=== PATIENT | male | born 1955 | race Caucasian/White ===

== ENCOUNTER 2020-07-03 12:59 | Inpatient (IN) | payer MEDICARE, SELFPAY ==
[2020-07-03] VITALS (44 sets, daily range): BP systolic 109–240; BP diastolic 51–131; PULSE 40–53; RESP 8–22; TEMP 36.7–37.2; O2SAT 92–97; BMI 23.7; BMI 21.4
--- NOTE | 2020-07-03 13:03 | XR_ITS ---
WS: [id number] Portable AP upright chest, 07/03/2020 Clinical Data: CVA symptoms Comparison: None. Findings: No nodules, masses or effusions are seen. The heart is slightly enlarged. No pneumothorax i s seen. Minimal bilateral patchy opacities are seen. This could represent pulmonary vascular congesti on or mild diffuse pneumonia XR/XR chest 1V portable [id number] Impression: Cardiomegaly with possible mild pulmonary vascular congestion.
--- NOTE | 2020-07-03 13:03 | CT_ITS ---
WS: [id number] CT HEAD TECHNIQUE: Noncontrast CT of the head obtained from the skullbase to the vertex. CLINICAL INFORMATION: Unilateral weakness COMPARISON: None. DLP: [address] scans at [facility] use at least one of these dose optimization techniques: automat ed exposure control; mA and/or kV adjustment per patient size (includes targeted exams where dose is matched to clinical indication); or iterative reconstruction. FINDINGS: No evidence of intracranial hemorrhage or mass effect. Ventricular system and basal cisterns are staples nt. Mild small vessel changes with mild parenchymal volume loss. No extra-axial fluid collections. No evidence of mass or mass effect. Normal nathan-white differentiation. Paranasal sinuses and mastoid air cells are well aerated. .Normal visualized soft tissues. Vascular c alcification. CT/CT head wo con* [id number] IMPRESSION: 1. No evidence of intracranial hemorrhage or mass effect. 2. Mild small vessel changes with mild parenchymal volume loss. 3. No acute intracranial findings. Notified Janina Chong at 07/03/2020 1:10 PM.
--- NOTE | 2020-07-03 13:03 | ECG_ITS ---
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 Measurements Intervals [place] Rate: 51 P: 51 VT: 174 QRS: 18 QRSD: 124 T: -68 QT: 488 QTc: 450 Interpretive Statements SINUS BRADYCARDIA POSSIBLE LEFT ATRIAL ENLARGEMENT [-0.1mV P WAVE IN V1/V2] MODERATE INTRAVENTRICULAR CONDUCTION DELAY [105+ ms QRS DURATION, 80+ ms Q/S IN V1/V2, NO Q AND 60+ ms R IN I/aVL/V5/V6] ST DEVIATION AND MODERATE T-WAVE ABNORMALITY, CONSIDER LATERAL ISCHEMIA [-0.1+ mV T WAVE IN I/aVL/V5/V6] ST DEVIATION AND MODERATE T-WAVE ABNORMALITY, CONSIDER INFERIOR ISCHEMIA [-0.1+ mV T WAVE IN II/aVF] No previous ECG available for comparison Electronically Signed On 07-03-2020 18:22:16 CDT by Uri James M.D. [id number]
--- NOTE | 2020-07-03 13:18 | ED_ITS ---
HPI - Neuro Symptoms/Deficit General: Chief Complaint: Neuro Symptoms/Deficit Stated Complaint: poss TIA Time Seen by Provider: 07/03/20 13:00 Source: patient and EMS Mode of arrival: EMS Limitations: no limitations History of Present Illness: HPI Narrative: Reyes is a nice 64-year-old male who comes in complaining of right-sided weakness. He was at work when he noticed the symptoms at 1235 of right-sided facial numbness, difficulty with speech, arm weakness and numbness and near syncope. Patient denies having any symptoms similar to this in the past. EMS was called and the patient was brought here to the hospital. The patient states his symptoms are not completely gone but the only symptoms that he has left is tingling in his right hand fingers. All of the other symptoms have resolved. He thinks they lasted for a total of 5 minutes or less. The patient is noted to be markedly hypertensive with a blood pressure of 240/131. He has a history of hypertension and took his medicines today states he saw his doctor yesterday with a blood pressure of 140 systolic. Patient denies any chest pain, shortness of breath, headache, or any other complaints. Associated symptoms: Deny chest pain, diaphoresis, headache(s), malaise, nausea, syncope, vertigo or vomiting Review of Systems Const: Denies: fever(s), chills, body aches, fatigue, malaise or diaphoresis Eyes: Denies: change in vision, blurry vision, photophobia, eye discomfort, eye discharge, eye redness or yellow eyes ENMT: Denies: throat pain, odynophagia, hoarseness, swelling of lips/tongue, ear or mastoid pain, ear discharge, change in hearing or nasal discharge Card: Denies: chest pain, palpitations, irregular heart rhythm, edema, lightheadedness, syncope, pre-syncope, dyspnea on exertion or orthopnea Resp: Denies: dyspnea, productive cough, non-productive cough, wheezing, hemoptysis or chest congestion GI: Denies: abdominal pain, nausea, vomiting, hematemesis, coffee ground emesis, heartburn, diarrhea, constipation, GI cramping, hematochezia or melena : Denies: flank pain, dysuria, urinary frequency, urinary urgency or hematuria Musc: Denies: neck pain, back pain, extremity pain, extremity swelling, joint pain, joint swelling, joint redness, joint warmth or joint stiffness Skin/Breast: Denies: rash, pruritus, erythema, skin pain or skin tenderness Neuro: Denies: headache(s), numbness in extremities, weakness in extremities, sensory changes, lack of coordination, difficulty walking, dizziness, vertigo, confusion, Slurred speech present or seizure-like activity Boo/Lymph: Denies: easy bruising, easy bleeding, petechiae, purpura or enlarged lymph nodes All/Imm: Denies: urticaria, throat swelling, tongue swelling, facial swelling or acute wheezing PFSH ED PFSH: Medical History (Updated 07/03/20 @ 17:20 by Memo Ybarra MD) Coronary artery disease Hypertension Sinus bradycardia Tobacco abuse Tonsillectomy planned Undescended testis Surgical History (Updated 07/03/20 @ 17:09 by Memo Ybarra MD) History of orchiectomy Family History (Updated 07/03/20 @ 17:09 by Memo Ybarra MD) Mother CAD (coronary artery disease) Father Cancer Social History (Updated 07/03/20 @ 17:10 by Memo Ybarra MD) Smoking and tobacco status: current every day smoker Second hand smoke exposure: Yes Alcohol intake: current Desire information about alcohol rehabilitation?: No Counseling given: No Substance/Drug Use: never NIH stroke score NIHSS: Level Of Consciousness - 1a: 0 Level Of Consciousness Questions - 1b: Both Correct Level Of Consciousness Commands - 1c: Both Correct Best Gaze - 2: Normal Visual Arana - 3: No Visual Loss Facial Palsy - 4: Normal Motor Arm Right - 5: No Drift Motor Arm Left - 5: No Drift Motor Leg Right - 6: No Drift Motor Leg Left - 6: No Drift Limb Ataxia - 7: Absent Sensory - 8: Mild To Moderate Loss Best Language - 9: No Aphasia Dysarthia - 10: Normal Extinction And Inattention - 11: 0 Score: Total Score: 1 Physical Exam Const: COMMON NORMALS: no acute distress, patient oriented x3, no limitations and alert GENERAL APPEARANCE: cooperative HENMT: COMMON NORMALS: normocephalic, atraumatic, external ears normal, EAC's normal and Normal external nose present HEAD & SCALP: normal to inspection, normocephalic and atraumatic FACE & SINUS: normal facial exam and face symmetric NOSE: Normal external nose present and Normal nares present EXTERNAL EAR: Yes external ears normal EXTERNAL AUDITORY CANAL: EAC's normal MOUTH: Normal oral and palatal mucosa present, lip normal and tongue normal Eye: COMMON NORMALS: Equal, round and reactive pupils present and conjunctivae normal GENERAL EYE: appearance normal, both eyes and all related structures ALIGNMENT: Yes alignment normal PERIORBITAL: periorbital findings normal EYELID: eyelids normal CONJUNCTIVA: Yes conjunctivae normal SCLERA: sclerae normal PUPIL: Yes Equal, round and reactive pupils present Neck/C-Spine: COMMON NORMALS: full ROM, no lymphadenopathy, supple, no meningeal signs and no JVD GENERAL: Yes normal visual inspection and Yes trachea midline Chest: COMMONS NORMALS: normal inspection of the chest and normal palpation of entire chest wall Resp: COMMON NORMALS: normal respiratory effort, No retractions, No use of accessory muscles and clear to auscultation bilaterally EFFORT & INSPECTION: Yes able to speak in complete sentences and Yes symmetric chest movement AUSCULTATION: clear to auscultation bilaterally, no crackles, no rales, no rhonchi and no wheezes Cardio: COMMON NORMALS: no JVD, regular rate, regular rhythm, S1 normal heart sound present and S2 normal heart sound present RATE: regular rate RHYTHM: regular rhythm HEART SOUNDS: S1 normal heart sound present, S2 normal heart sound present, no click, no gallops, no murmurs and no rubs GI: COMMON NORMALS: Soft to palpation and No hepatosplenomegaly present PALPATION: Yes Soft to palpation, No Tenderness to palpation present (GI), No Guarding due to palpation present (GI), No Rigid due to palpation, Yes No hepatosplenomegaly present, No Hernia present, No Palpable mass present and No Pulsatile mass present : COMMON NORMALS: Yes no CVA tenderness BLADDER/KIDNEY EXAM: Yes no CVA tenderness Back/Pelvis: COMMON NORMALS: no CVA tenderness, thoracic and lumbar spine normal to inspection, no thoracic nor lumbar tenderness and thoraco-lumbar ROM normal Extremity: COMMON NORMALS: normal to inspection, full ROM, capillary refill normal, no joint enlargement, no clubbing, cyanosis or edema and no calf tenderness Neuro: COMMON NORMALS: patient oriented x3, CN's II-XII intact bilaterally, moves all extremities, no focal motor deficits and no sensory deficits noted SENSORIUM/ORIENTATION: Yes alert MENINGEAL SIGNS: Yes no meningeal signs SPEECH: speech normal Psych: COMMON NORMALS: mental status grossly normal, Normal thought process present, cooperative, normal affect, speech normal and activity/motor behavior normal SPEECH: Yes normal speech THOUGHT PROCESS: Normal thought process present Skin: COMMON NORMALS: no rashes or lesions noted, turgor normal, no jaundice, no petechiae and no mottling GENERAL SKIN EXAM: no rashes or lesions noted and turgor normal Course ED course: 1337 -Case reviewed with Dr. Merlos at [facility] professional application designer for stroke. He agrees the patient is not a TPA candidate at this time and recommends using Cardene to keep the patient's blood pressure less than 220/110. Patient's blood pressure is not improved on its own here and his heart rate is not amenable to labetalol. Vital Signs: Vital signs: Vital Signs Temperature 98.2 F 07/04/20 00:00 Pulse Rate 42 L 07/04/20 04:00 Respiratory Rate 26 H 07/04/20 04:00 Blood Pressure 147/73 07/04/20 04:00 Pulse Oximetry 93 07/04/20 04:00 MDM - Neuro Symptoms/Deficit MDM Narrative: Medical decision making narrative: 1615 -patient's blood pressure has improved but not too low with the Cardene. His systolic is ranging anywhere from 180s to 200s. His diastolic is just below 110. CTA of the head and neck is unremarkable. Unremarkable and the since there is no intervene able clots. I have reviewed the case in full with Dr. Ybarra he is agreeable to admission for further evaluation and care. Lab Data: Attestation: I reviewed the patient's lab results. Labs: Lab Results 07/03/20 07/03/20 07/03/20 Range/Units 14:30 14:35 14:35 WBC 8.7 (4.0-10.0) 10^3/ uL RBC 4.88 (4.1-5.3) 10^6/u L Hgb 15.1 (11.7-16.6) g/dL Hct 45.7 (42.0-52.0) % MCV 93.6 (80-94) fL MCH 30.9 (28.0-34.0) pg MCHC 33.0 (30.0-36.0) g/dL RDW 13.6 (12.1-15.1) % Plt Count 85 L (130-400) 10^3/c mm MPV 13.3 H (7.4-10.4) fL Neut % (Auto) 79.9 % Lymph % (Auto) 13.6 % [place]mort[place] % (Auto) 3.7 % Eos % (Auto) 2.0 % Baso % (Auto) 0.3 % Neut # (Auto) 6.95 (1.8-7.7) 10^3/u L Lymph # (Auto) 1.2 (0.8-4.8) 10^3/u L [place] # (Auto) 0.3 (0.2-0.9) 10^3/u L Eos # (Auto) 0.2 (0.0-0.8) 10^3/u L Baso # (Auto) 0.0 (0.0-0.1) 10^3/u L Nucleated RBC % (a uto) 0 % Nucleated RBCs # 0.0 /100WBC PT 14.40 (12.1-14.9) SECO NDS INR 1.08 (0.8-1.2) APTT 29.5 (23.9-36.7) SECO NDS Sodium (136-145) mmol/L Potassium (3.5-5.1) mmol/L Chloride (98-107) mmol/L Carbon Dioxide (22-29) mmol/L Anion Gap (5-19) BUN (8-23) mg/dL Creatinine (0.7-1.2) mg/dL GFR Calculation (90-130) mL/min Glucose (65-115) mg/dL Calculated Osmolal ity (285-295) mOsm/k g Calcium (8.5-10.5) mg/dL Magnesium (1.7-2.3) mg/dL Total Bilirubin (0.15-1.2) mg/dL AST (0-40) U/L ALT (0-41) U/L Alkaline Phosphata se (40-130) IU/L Troponin T Baselin e (0-15) ng/L Total Protein (6.6-8.7) g/dL Albumin (3.5-5.2) g/dL Globulin (1.3-4.6) g/dL Urine Color Straw (Yellow) Urine Appearance Clear (CLEAR) Urine pH 7 (5-7) Ur Specific Gravit y 1.010 (1.005-1.030) Urine Protein Neg (Negative) Urine Glucose (UA) Norm (Normal) Urine Ketones Negative (Negative) Urine Blood Neg (Negative) Urine Nitrate Negative (Negative) Urine Bilirubin Neg (Negative) Urine Urobilinogen Norm (Negative) mg/dL Ur Leukocyte Kesha ase Negative (Negative) Urine RBC None (0-2) /hpf Urine WBC None (0-5) /hpf Ur Squamous Epith Cells None (0-5) /hpf Amorphous Sediment Not Reportable Urine Bacteria None (NONE) /hpf 07/03/20 07/03/20 Range/Units 14:35 14:35 WBC (4.0-10.0) 10^3/ uL RBC (4.1-5.3) 10^6/u L Hgb (11.7-16.6) g/dL Hct (42.0-52.0) % MCV (80-94) fL MCH (28.0-34.0) pg MCHC (30.0-36.0) g/dL RDW (12.1-15.1) % Plt Count (130-400) 10^3/c mm MPV (7.4-10.4) fL Neut % (Auto) % Lymph % (Auto) % [place] % (Auto) % Eos % (Auto) % Baso % (Auto) % Neut # (Auto) (1.8-7.7) 10^3/u L Lymph # (Auto) (0.8-4.8) 10^3/u L [place] # (Auto) (0.2-0.9) 10^3/u L Eos # (Auto) (0.0-0.8) 10^3/u L Baso # (Auto) (0.0-0.1) 10^3/u L Nucleated RBC % (a uto) % Nucleated RBCs # /100WBC PT (12.1-14.9) SECO NDS INR (0.8-1.2) APTT (23.9-36.7) SECO NDS Sodium 141 (136-145) mmol/L Potassium 3.9 (3.5-5.1) mmol/L Chloride 105 (98-107) mmol/L Carbon Dioxide 26 (22-29) mmol/L Anion Gap 13.9 (5-19) BUN 13 (8-23) mg/dL Creatinine 1.2 (0.7-1.2) mg/dL GFR Calculation 60.6 L (90-130) mL/min Glucose 109 (65-115) mg/dL Calculated Osmolal ity 293 (285-295) mOsm/k g Calcium 8.7 (8.5-10.5) mg/dL Magnesium 1.6 L (1.7-2.3) mg/dL Total Bilirubin 0.5 (0.15-1.2) mg/dL AST 19 (0-40) U/L ALT 16 (0-41) U/L Alkaline Phosphata se 67 (40-130) IU/L Troponin T Baselin e 15 (0-15) ng/L Total Protein 6.4 L (6.6-8.7) g/dL Albumin 4.1 (3.5-5.2) g/dL Globulin 2.3 (1.3-4.6) g/dL Urine Color (Yellow) Urine Appearance (CLEAR) Urine pH (5-7) Ur Specific Gravit y (1.005-1.030) Urine Protein (Negative) Urine Glucose (UA) (Normal) Urine Ketones (Negative) Urine Blood (Negative) Urine Nitrate (Negative) Urine Bilirubin (Negative) Urine Urobilinogen (Negative) mg/dL Ur Leukocyte Kesha ase (Negative) Urine RBC (0-2) /hpf Urine WBC (0-5) /hpf Ur Squamous Epith Cells (0-5) /hpf Amorphous Sediment Urine Bacteria (NONE) /hpf Imaging Data^: CT Head: Radiologist's impression: [address] [address] [address] Scan Report Signed Patient: Reyes Ji Unit #: [id number] : 1955 Age/Sex: 64 / M ADM Date: 07/03/20 Loc: ER Room/Bed: Attending Dr: Ordering Provider/Ordering MD: Janina Chong DO Date of Service: 07/03/20 Procedure(s): CT head wo con* [id number] Accession Number(s): [id number] Report Number: [id number] WS: [id number] CT HEAD TECHNIQUE: Noncontrast CT of the head obtained from the skullbase to the vertex. CLINICAL INFORMATION: Unilateral weakness COMPARISON: None. DLP: [address] scans at [facility] use at least one of these dose optimization techniques: automated exposure control; mA and/or kV adjustment per patient size (includes targeted exams where dose is matched to clinical indication); or iterative reconstruction. FINDINGS: No evidence of intracranial hemorrhage or mass effect. Ventricular system and basal cisterns are patent. Mild small vessel changes with mild parenchymal volume loss. No extra- axial fluid collections. No evidence of mass or mass effect. Normal nathan-white differentiation. Paranasal sinuses and mastoid air cells are well aerated. .Normal visualized soft tissues. Vascular calcification. CT/CT head wo con* [id number] IMPRESSION: 1. No evidence of intracranial hemorrhage or mass effect. 2. Mild small vessel changes with mild parenchymal volume loss. 3. No acute intracranial findings. Notified Janina Chong at 07/03/2020 1:10 PM. Dictated By: Alonzo Guillermo MD Signed By: Alonzo uGillermo MD Signed Date/Time: 07/03/20 1312 DD/ 1306 CTA Head Neck: Radiologist's impression: [address] [address] [address] Scan Report Signed Patient: Reyes Ji Unit #: [id number] : 1955 Age/Sex: 64 / M ADM Date: 07/03/20 Loc: ER Room/Bed: Attending Dr: Ordering Provider/Ordering MD: Janina Chong DO Date of Service: 07/03/20 Procedure(s): CT head wo con* [id number] Accession Number(s): [id number] Report Number: [id number] WS: [id number] CT HEAD TECHNIQUE: Noncontrast CT of the head obtained from the skullbase to the vertex. CLINICAL INFORMATION: Unilateral weakness COMPARISON: None. DLP: [address] scans at [facility] use at least one of these dose optimization techniques: automated exposure control; mA and/or kV adjustment per patient size (includes targeted exams where dose is matched to clinical indication); or iterative reconstruction. FINDINGS: No evidence of intracranial hemorrhage or mass effect. Ventricular system and basal cisterns are patent. Mild small vessel changes with mild parenchymal volume loss. No extra- axial fluid collections. No evidence of mass or mass effect. Normal nathan-white differentiation. Paranasal sinuses and mastoid air cells are well aerated. .Normal visualized soft tissues. Vascular calcification. CT/CT head wo con* [id number] IMPRESSION: 1. No evidence of intracranial hemorrhage or mass effect. 2. Mild small vessel changes with mild parenchymal volume loss. 3. No acute intracranial findings. Notified Janina Chong at 07/03/2020 1:10 PM. Dictated By: Alonzo Guillermo MD Signed By: Alonzo Guillermo MD Signed Date/Time: 07/03/20 1312 DD/ 1306 CXR: Attestation: I personally reviewed and interpreted this imaging study as follows: My impression: No acute cardiopulmonary findings. EKG Data^: EKG 1: Attestation: I personally reviewed and interpreted this EKG as follows: EKG interpretation date: 07/03/20 EKG interpretation time: 13:07 Interpretation: Sinus bradycardia at 50 beats a minute, T wave inversions were 2, remember 3 and aVF. 2 inversions also present in V5 V6. Nonspecific ST and T wave changes. No old for comparison. EKG 2: Attestation: I personally reviewed and interpreted this EKG as follows: EKG interpretation date: 07/03/20 EKG interpretation time: 14:57 Interpretation: Sinus bradycardia 57 beats a minute, T wave inversions inferiorly in V4 through V6. Unchanged from previous. Discharge Plan Discharge Patient Disposition: Admitted As Inpatient Admit Provider: Memo Ybarra Clinical Impression: Hypertensive emergency Transient cerebral ischemia Qualifiers: Transient cerebral ischemia type: unspecified Qualified Code(s): G45.9 - Transient cerebral ischemic attack, unspecified Condition: Stable Referrals: Morgan Landa Jr, MD [Primary Care Provider] - Discharge Date/Time: 07/03/20 19:38 Coding Level of Care Code ED Cut Press Operator for Chg Fwd Exam Comprehensive
[2020-07-03] MEDS: nicardipine 20 MG/200 ML PREMIX 25 MG IV ×2 (13:49→20:10)
--- NOTE | 2020-07-03 14:01 | CT_ITS ---
WS: [id number] CTA HEAD AND NECK TECHNIQUE: Contrast enhanced CTA of the head and neck with coronal and sagittal reformatted images an d maximum intensity projection (MIP) images. NASCET criteria utilized. CLINICAL INFORMATION: cva COMPARISON: None. DLP: 2358.[address] scans at [facility] use at least one of these dose optimization techniques: automat ed exposure control; mA and/or kV adjustment per patient size (includes targeted exams where dose is matched to clinical indication); or iterative reconstruction. FINDINGS: RIGHT: Right common carotid artery is patent. Moderate calcified atheromatous disease right carotid b ulb extending into the ICA. Right ICA stenosis measures less than 50%. Right ICA is patent to the sku ll base. LEFT: Left common carotid artery is patent. Moderate calcified atheromatous disease left carotid bulb extending into the ICA. No significant left ICA stenosis. Left ICA is patent to the skull base. INTRACRANIAL CTA: Both vertebral arteries are patent. Basilar artery is patent. Normal vascularity to the MANAGER SERVICE DESK territory bilaterally. Both ICAs are patent at the skull base. Cavernous chronic calcification. Hypoplastic A1 segments. Nor mal vascularity to the JOBY and MCA territories bilaterally. No evidence of high-grade proximal stenos is or aneurysm. Distal vessels appear patent. Mastoid air cells are well aerated. Paranasal sinuses are well aerated with mild mucosal thickening i n the maxillary sinuses and ethmoid air cells. Mild mucosal thickening in the sphenoid sinuses.Emphys ematous changes in the lung apices. CT/CT angio headneck* [id number] IMPRESSION: 1. Moderate calcified atheromatous disease both carotid bulbs extending into t he ICAs. 2. Right proximal ICA stenosis measures less than 50%. No significant left ICA stenosis. 3. Codominant and patent vertebral arteries bilaterally. 4. Intracranial vascular calcification involving the cavernous carotid arterie s and intracranial vertebral arteries which remain patent. 5. Unremarkable intracranial seminole of [place]. Distal vessels are patent. 6. No flow-limiting intracranial stenosis. Attempted notification Janina Chong at 07/03/2020 3:55 PM. .
[2020-07-03 14:44] LABS: Basophils % 0.3 %; Eosinophils # 0.2 10^3/uL (0.0-0.8); Hematocrit 45.7 % (42.0-52.0); Hemoglobin 15.1 g/dL (11.7-16.6); Lymphocytes # 1.2 10^3/uL (0.8-4.8); Lymphocytes % 13.6 %; Mean Corpuscular Hemoglobin 30.9 pg (28.0-34.0); Mean Corpuscular Volume 93.6 fL (80-94); Mean Platelet Volume 13.3 fL (7.4-10.4); Monocytes # 0.3 10^3/uL (0.2-0.9); Monocytes % 3.7 %; Neutrophils # 6.95 10^3/uL (1.8-7.7); Neutrophils % 79.9 %; Nucleated Red Blood Cells % 0 %; Platelet Count 85 10^3/cmm (130-400); Red Blood Count 4.88 10^6/uL (4.1-5.3); Red Cell Distribution Width 13.6 % (12.1-15.1); White Blood Count 8.7 10^3/uL (4.0-10.0)
--- NOTE | 2020-07-03 15:03 | ECG_ITS ---
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 Measurements Intervals [place] Rate: 47 P: 62 UT: 177 QRS: 51 QRSD: 125 T: 236 QT: 501 QTc: 446 Interpretive Statements SINUS BRADYCARDIA POSSIBLE LEFT ATRIAL ENLARGEMENT [-0.1mV P WAVE IN V1/V2] MODERATE INTRAVENTRICULAR CONDUCTION DELAY [105+ ms QRS DURATION, 80+ ms Q/S IN V1/V2, NO Q AND 60+ ms R IN I/aVL/V5/V6] ST DEVIATION AND MODERATE T-WAVE ABNORMALITY, CONSIDER LATERAL ISCHEMIA [-0.1+ mV T WAVE IN I/aVL/V5/V6] ST DEVIATION AND MODERATE T-WAVE ABNORMALITY, CONSIDER INFERIOR ISCHEMIA [-0.1+ mV T WAVE IN II/aVF] Compared to ECG 07/03/2020 13:07:14 No significant changes Electronically Signed On 07-03-2020 18:27:48 CDT by Uri James M.D. [id number]
[2020-07-03 15:11] LABS: Alanine Aminotransferase 16 U/L (0-41); Albumin Level 4.1 g/dL (3.5-5.2); Alkaline Phosphatase 67 IU/L (40-130); Anion Gap 13.9 (5-19); Aspartate Amino Transferase 19 U/L (0-40); Blood Urea Nitrogen 13 mg/dL (8-23); Calcium 8.7 mg/dL (8.5-10.5); Carbon Dioxide 26 mmol/L (22-29); Chloride 105 mmol/L (98-107); Globulin 2.3 g/dL (1.3-4.6); Glomerular Filtration Rate 60.6 mL/min (90-130); Glucose 109 mg/dL (65-115); Magnesium 1.6 mg/dL (1.7-2.3); Osmolality Calculated 293 mOsm/kg (285-295); Potassium 3.9 mmol/L (3.5-5.1); Sodium 141 mmol/L (136-145); Total Bilirubin 0.5 mg/dL (0.15-1.2); Total Protein 6.4 g/dL (6.6-8.7)
[2020-07-03 15:12] LABS: Troponin(5th) Baseline 15 ng/L (0-15)
[2020-07-03] MEDS: iohexol 350 mg/mL 100 mL Btl IV (15:20)
[2020-07-03 15:25] LABS: Slide Review Slide Review Perform
[2020-07-03 16:42] LABS: INR 1.08 (0.8-1.2)
[2020-07-03 16:43] LABS: Partial Thromboplastin Time 29.5 SECONDS (23.9-36.7)
--- NOTE | 2020-07-03 16:48 | P.HP_ITS ---
Providers/Chief Complaint Primary Care Provider: Morgan Landa Jr, MD Chief Complaint: poss TIA History of Present Illness Reyes Ji is a 64 year old male presents emergency department with acute episode of numbness and weakness of the right upper extremity and then right facial numbness and slurred speech while patient was at work around 1235. He was further evaluated in emergency department. He was found to have blood pressure 240/131. He was started on Cardene drip to keep blood pressure below 220/110. His CT scan without contrast was unremarkable. CTA showed less than 50% of right proximal ICA stenosis. No significant left ICA stenosis. He did not qualify for TPA. He is being admitted to ICU for close monitoring and treatment. Patient denies previous history of stroke. Patient denies being diabetic. He has chronic hypertension which is treated and well controlled on 2 blood pressure medications, metoprolol and what appears to be a lisinopril which he takes twice daily. Reports that his heart rate always in mid 40s to 50. He has coronary disease requiring intervention approximately 8 years ago. He received 2 stents at that time. Reports that he was on Plavix for several years after intervention and then it was discontinued. Reports that he has been on full dose aspirin since then. Reports compliance with medications and takes statin. Patient otherwise denied shortness of breath or chest pain. Denies abdominal pain or problems with bowel movement. Denies problem with urination. Had very minimal weight loss in the last 1 year which patient reports likely because he was quite active during summertime. He continues to smoke since age 16 and reports he is down to half pack per day. During my evaluation in emergency department patient reports that his neurological symptoms are completely gone except he has distal right index finger numbness. His strength and speech completely recovered. He showed no cerebellar signs and had normal peripheral vision. He denied heart palpitations or irregular rhythm or previous history of atrial fibrillation/flutter. Review of Systems Narrative: Except as mentioned. Const: Denies: fever(s) or chills Eyes: Denies: change in vision ENMT: Denies: throat pain or change in hearing Card: Denies: chest pain, edema or lightheadedness Resp: Denies: dyspnea or productive cough GI: Denies: abdominal pain, nausea, vomiting, dysphagia, diarrhea, constipation, hematochezia or melena Musc: Denies: joint pain or joint swelling Skin/Breast: Denies: rash or erythema Neuro: Denies: headache(s) or weakness in extremities Psych: Denies: depression or suicidal ideation Endo: Denies: excessive sweating Boo/Lymph: Denies: easy bleeding or tender lymph nodes All/Imm: Denies: throat swelling Medications/Allergies Allergies Allergy/AdvReac Type Severity Reaction Status Date / Time No Known Allergies Allergy Verified 07/03/20 13:06 PFSH Acute PFSH: Medical History (Updated 07/03/20 @ 17:20 by Memo Ybarra MD) Coronary artery disease Hypertension Sinus bradycardia Tobacco abuse Tonsillectomy planned Undescended testis Surgical History (Updated 07/03/20 @ 17:09 by Memo Ybarra MD) History of orchiectomy Family History (Updated 07/03/20 @ 17:09 by Memo Ybarra MD) Mother CAD (coronary artery disease) Father Cancer Social History (Updated 07/03/20 @ 17:10 by Memo Ybarra MD) Smoking and tobacco status: current every day smoker Second hand smoke exposure: Yes Alcohol intake: current Desire information about alcohol rehabilitation?: No Counseling given: No Substance/Drug Use: never Vitals/I&O/Wt Last Vital Signs Pulse 50 L 07/03/20 16:09 Resp 15 07/03/20 16:09 BP 195/94 07/03/20 16:09 Pulse Ox 95 07/03/20 16:09 Weight last 48 hrs Weight 77.111 kg Physical Exam 2 Const: COMMON NORMALS: no acute distress, patient oriented x3 and alert HENMT: COMMON NORMALS: normocephalic and atraumatic HEAD & SCALP: normocephalic and atraumatic Eye: COMMON NORMALS: EOMs intact bilaterally, conjunctivae normal and no scleral icterus CONJUNCTIVA: Yes conjunctivae normal Neck/C-Spine: COMMON NORMALS: no lymphadenopathy and no meningeal signs Lymph: LYMPHATIC: no lymphadenopathy noted Chest: COMMONS NORMALS: normal palpation of entire chest wall Resp: COMMON NORMALS: No use of accessory muscles and clear to auscultation bilaterally AUSCULTATION: clear to auscultation bilaterally Cardio: COMMON NORMALS: regular rate, regular rhythm and No murmurs present (Cardio) RATE: regular rate RHYTHM: regular rhythm OTHER: No lower extremity edema GI: COMMON NORMALS: Soft to palpation and non-tender PALPATION: Yes Soft to palpation RECTAL EXAM: Yes deferred : COMMON NORMALS: Yes no CVA tenderness BLADDER/KIDNEY EXAM: Yes no CVA tenderness Back/Pelvis: COMMON NORMALS: no CVA tenderness and thoracic and lumbar spine normal to inspection Extremity: COMMON NORMALS: normal to inspection and capillary refill normal Neuro: COMMON NORMALS: patient oriented x3 and no focal motor deficits SENSORIUM/ORIENTATION: Yes alert MENINGEAL SIGNS: Yes no meningeal signs Psych: COMMON NORMALS: mental status grossly normal, Normal thought process pr esent and cooperative THOUGHT PROCESS: Normal thought process present Skin: COMMON NORMALS: no rashes or lesions noted GENERAL SKIN EXAM: no rashes or lesions noted Data : 07/03/20 14:35 07/03/20 14:35 A&P Assessment and plan (1) Cerebrovascular accident: Status: Acute (2) Hypertensive emergency: Status: Acute (3) Tobacco abuse: Status: Acute (4) Peripheral vascular disease: Status: Acute (5) Thrombocytopenia: Status: Acute (6) Dyslipidemia: Status: Acute (7) Hypomagnesemia: Status: Acute (8) COPD suggested by initial evaluation: Status: Acute (9) Sinus bradycardia: Status: Acute Additional A&P Information PLAN: We will switch aspirin to 81 mg daily and add Plavix with close monitoring of hemoglobin and platelets. Continue statin. Obtain echocardiogram for further evaluation. Discussed extensively of more than 3 minutes regarding importance of smoking cessation. Patient voiced understanding. He does not think he will need pharmacological help. Patient appears to have COPD and will need to have further outpatient evaluation with PFT post discharge. Replete magnesium. Monitor closely in ICU and adjust Cardene drip as needed to keep blood pressure below 220/110 but above systolic 185. Reconcile medications and restart patient's blood pressure medications tomorrow. Because of significant thrombocytopenia will avoid anticoagulation with Lovenox especially in view of added Plavix to aspirin. SCDs for DVT prophylaxis Protonix for GI prophylaxis. PT/OT/ST. Would like to mention that patient was evaluated and examined with patient's at bedside in ER who did report that patient speech is back to normal. Attestations Medical Necessity Statement*: Patient with cerebrovascular accident and hyper tensive emergency requires close ICU monitoring and treatment. I expect patient will require more than 2 midnights. Time Spent in Patient Care: Greater than 35 minutes Coding Level of Care Code Acute Operational Trainer for Chg Fwd Diagnoses Cerebrovascular accident I63.9 Hypertensive emergency I16.1 Tobacco abuse Z72.0 Peripheral vascular disease I73.9 Thrombocytopenia D69.6 Dyslipidemia E78.5 Hypomagnesemia E83.42 COPD suggested by initial evaluation J44.9 Sinus bradycardia R00.1
[2020-07-03 16:58] LABS: Bilirubin Urine Neg (Negative); Blood Urine Neg (Negative); Glucose Urine UA Norm (Normal); Ketones Urine Negative (Negative); Leukocyte Esterase Urine Negative (Negative); Nitrate Urine Negative (Negative); Protein Urine Neg (Negative); Urine Appearance Clear (CLEAR); Urine Color Straw (Yellow); Urobilinogen Urine Norm (Negative); pH Urine 7 (5-7)
[2020-07-03] MEDS: clopidogrel 75 mg Tablet PO (17:20)
[2020-07-03] MEDS: magnesium sulfate premix 2 GM/50 ML PIGGYBACK IV (17:20)
[2020-07-03 17:27] LABS: Add Urine Culture? No
[2020-07-03] MEDS: atorvastatin 40 mg Tablet PO (18:46)
--- NOTE | 2020-07-03 18:54 | PC.NURSE ---
Attempted to call report to ICU at 1840, UC stated the nurse would not take report for 15-20 minutes as nurse was in report at shift change. FREDY Rhodes then stated room was not equipped as adjoining room was on COVID19 precautions
[2020-07-03] MEDS: lactated ringers 1,000 ML 75 ML IV (19:48)
[2020-07-03 20:14] LABS: Troponin T (5th) Once 13 ng/L (0-15)
[2020-07-04] VITALS (25 sets, daily range): BP systolic 124–206; BP diastolic 61–101; PULSE 38–53; RESP 0–26; TEMP 36.6–37; O2SAT 92–98
[2020-07-04 04:06] LABS: Basophils % 0.5 %; Eosinophils # 0.1 10^3/uL (0.0-0.8); Eosinophils % 2.2 %; Hematocrit 44.2 % (42.0-52.0); Hemoglobin 14.9 g/dL (11.7-16.6); Lymphocytes # 1.6 10^3/uL (0.8-4.8); Lymphocytes % 24.8 %; Mean Corpuscular HGB Conc 33.7 g/dL (30.0-36.0); Mean Corpuscular Hemoglobin 30.9 pg (28.0-34.0); Mean Corpuscular Volume 91.7 fL (80-94); Mean Platelet Volume 13.4 fL (7.4-10.4); Monocytes # 0.4 10^3/uL (0.2-0.9); Monocytes % 6.7 %; Neutrophils # 4.25 10^3/uL (1.8-7.7); Neutrophils % 65.6 %; Nucleated Red Blood Cells % 0 %; Platelet Count 83 10^3/cmm (130-400); Red Blood Count 4.82 10^6/uL (4.1-5.3); Red Cell Distribution Width 13.5 % (12.1-15.1); White Blood Count 6.5 10^3/uL (4.0-10.0)
[2020-07-04 04:30] LABS: Slide Review Slide Review Perform
[2020-07-04 04:39] LABS: Alanine Aminotransferase 13 U/L (0-41); Albumin Level 3.6 g/dL (3.5-5.2); Alkaline Phosphatase 60 IU/L (40-130); Anion Gap 12.4 (5-19); Aspartate Amino Transferase 15 U/L (0-40); Blood Urea Nitrogen 13 mg/dL (8-23); Calcium 9.1 mg/dL (8.5-10.5); Carbon Dioxide 26 mmol/L (22-29); Chloride 105 mmol/L (98-107); Globulin 2.5 g/dL (1.3-4.6); Glucose 89 mg/dL (65-115); Magnesium 2.1 mg/dL (1.7-2.3); Osmolality Calculated 290 mOsm/kg (285-295); Potassium 3.4 mmol/L (3.5-5.1); Sodium 140 mmol/L (136-145); Total Bilirubin 0.7 mg/dL (0.15-1.2); Total Protein 6.1 g/dL (6.6-8.7)
[2020-07-04] MEDS: pantoprazole DR 40 mg Tablet PO (07:59)
[2020-07-04] MEDS: clopidogrel 75 mg Tablet PO (07:59)
[2020-07-04] MEDS: potassium chloride ER 10 mEq Tablet 40 MEQ PO (08:00)
[2020-07-04] MEDS: aspirin 81 mg EC Tablet PO (08:00)
[2020-07-04] MEDS: lactated ringers 1,000 ML 75 ML IV (08:01)
--- NOTE | 2020-07-04 09:07 | PC.CHAP ---
Pastoral Care Encounter/Spiritual Assessment Type of Contact [] Declined disintegrator feeder visit [] Patient/Family/Request visit [] Outpatient visit [] Follow-up visit [] Physician referral [] Code/Alert [] Routine visit [] Staff referral [] Actively dying [] Patient sleeping [] Family support [] [] Out of room [] Palliative care [] [] Receiving care in room [] Pre-surgical visit [] Trauma [] Long length of stay [] ICU visit [] Other: Relational/Emotional Strength [] Patient feels connected with others/family/visitors/staff [] Distress [] Loneliness/isolation [] Abandonment Spirituality of Patient [] Person of Jessie [] Attends Religious of their Jessie [] Believes in Prayer [] Reads Bible or Congregational materials [] There are Spiritual issues to be addressed Executive Sales Manager Interventions [x] Prayer [] Active listening [] Non-anxious presence [] Spiritual/emotional support [] Crisis/trauma care [] Spiritual counseling [] Bereavement support [] Provided bereavement packet [] Provided Bible/devotional materials [] Provided toy/stuffed animal, coloring book to patient or family member [] Provided Communion [] Anointing/[place] [] Salvation [x] Completed spiritual assessment [] Other: Impact on Illness or Injury [] Angry [] Fearful [] Anxious [] Often cries [] Exhaustion [] Unable to work [] Unable to attend alevism [] Unable to walk/stand [] Unable to read [] Unable to drive [] Unable to eat/drink [] Unable to sleep [] Unable to be with family [] Patient intubated [] Other: Summary Time spent with patient
--- NOTE | 2020-07-04 09:51 | PM.PN ---
Subjective Subjective: Interval history: Patient reports feeling much better. Reports that his neurological complaints completely resolved. He does not have any numbness or tingling. He does not have any motor deficit. His blood pressure continues to be elevated around 200 systolic during my evaluation this morning. He was able to eat breakfast and denies any problems with urination. Vitals/I&O/Wt Last Vital Signs Temp 98.2 F 07/04/20 00:00 Pulse 42 L 07/04/20 06:00 Resp 12 07/04/20 06:00 BP 166/78 07/04/20 06:00 Pulse Ox 95 07/04/20 06:00 07/03/20 07/04/20 07/04/20 22:59 06:59 14:59 Intake Total 612.917 / 612.917 252.5 / 865.417 916.25 / 916.25 Output Total 300 / 300 350 / 650 Balance 312.917 / 312.917 -97.5 / 215.417 916.25 / 916.25 Weight last 48 hrs Weight 69.037 kg Weight 69.581 kg Weight 77.111 kg Physical Exam Const: COMMON NORMALS: no acute distress and patient oriented x3 Resp: COMMON NORMALS: normal respiratory effort and clear to auscultation bilaterally AUSCULTATION: clear to auscultation bilaterally Cardio: COMMON NORMALS: regular rate, regular rhythm and S2 normal heart sound present RATE: regular rate RHYTHM: regular rhythm HEART SOUNDS: S2 normal heart sound present OTHER: No lower extremity edema GI: COMMON NORMALS: Normal to inspection, nondistended, normoactive bowel sounds present, Soft to palpation and non-tender PALPATION: Yes Soft to palpation Neuro: COMMON NORMALS: patient oriented x3 and no focal motor deficits Data : 07/04/20 03:25 07/04/20 03:25 A&P Assessment and plan (1) Cerebrovascular accident: Status: Acute (2) Hypertensive emergency: Status: Acute (3) Tobacco abuse: Status: Acute (4) Peripheral vascular disease: Status: Acute (5) Thrombocytopenia: Status: Acute (6) Dyslipidemia: Status: Acute (7) Hypomagnesemia: Status: Acute (8) COPD suggested by initial evaluation: Status: Acute (9) Sinus bradycardia: Status: Acute Additional A&P Information PLAN: We will discontinue IV fluids Restart patient's home lisinopril and decrease metoprolol to 25 mg twice daily and continue monitoring for neurological complaints. Continue monitoring vitals. If remains stable later this afternoon we will transfer to [facility]. Consider adding 5 minutes amlodipine should blood pressure still be elevated. Awaiting echocardiogram. Attestations Medical Necessity Statement*: Patient with hypertensive emergency as well as cerebrovascular accident requires close inpatient monitoring and treatment. Coding Level of Care Code Acute Fishery Biologist for Paresh Nagel Diagnoses Cerebrovascular accident I63.9 Hypertensive emergency I16.1 Tobacco abuse Z72.0 Peripheral vascular disease I73.9 Thrombocytopenia D69.6 Dyslipidemia E78.5 Hypomagnesemia E83.42 COPD suggested by initial evaluation J44.9 Sinus bradycardia R00.1
--- NOTE | 2020-07-04 10:13 | PC.NURSE ---
LOPRRESSOR HELD UNTIL I COULD SPEAK TO DR ABOUT HIS HEART RATE. HE SAID TO GO ON AND GIVE IT AT THE LOWER DOSE. PATIENTS FACE DOES NOT SEEM COMPLETELY SYMETRICAL BUT I WAS ASSURED THAT IS HIS NORMAL. LIMBS EQUAL. PATIENT VERY [place] AND NEEDS HIS GLASSES TO PERFORM FINGER NOSE ASSESSMENT.
[2020-07-04] MEDS: lisinopril 20 mg Tablet 40 MG PO (10:18)
--- NOTE | 2020-07-04 11:08 | PC.NURSE ---
VOIDS FREQUENTLY 50 TO 100 AT A TIME. MAY NEED FLOMAX OR A UROLOGY CONSULT. DENIES ISSUES. CARDENE DRIP ON FOR AN HOUR OR SO UNTIL NEW MEDS START TO METABOLIZE.
[2020-07-04] MEDS: amlodipine 5 mg Tablet PO (13:19)
--- NOTE | 2020-07-04 14:59 | PC.NURSE ---
DR KENNEDY NOTIFIED 2X OF BP RESPONSE TO NEW MEDICATIONS. ONCE AROUND NOON AND THE OTHER 1430. TRANSFER ORDERS ADJUSTED TO REFLECT DAILY NORVASC AND PRN HYDRALIZINE ALSO THAT THE DR WOULD LIKE Q2 HR BP MEASUREMENT . AN HOUR AFTER THE NORVASC HIS PRESSURE WAS IN THE 150'S SYSTOLIC AND 83 DIASTOLIC BUT THE NEXT PRESSURE WAS 181/94. DISCUSSED WITH PHARMACY THAT PATIENT HAS A LOW HEART RATE AND THAT THE DOCTOR WANTED ME TO GO AHEAD AND GIVE HIS LOWER DOSE OF LOPRESSOR. SO LABETOLOL AND LOPRESSOR IV WOULD NOT BE GOOD PRN MEDS FOR HIS ISSUES. DISCUSSED CALLING THE DOCTOR FOR A CLONIDINE ORDER IF THE HYDRALIZINE WAS NOT AVAILABLE. PATIENT SHOWS NO DEFICITS, HR TO 32 WHILE ASLEEP.
--- NOTE | 2020-07-04 15:38 | PC.RESP ---
SMOKING CESSATION INFORMATION SENT TO PATIENT.
[2020-07-04] MEDS: metoprolol tartrate 25 mg Tablet PO (15:46)
[2020-07-04] MEDS: hyDRALAzine 20 mg/mL INJ 1 mL 10 MG IVP ×2 (15:47→19:56)
[2020-07-04] MEDS: atorvastatin 40 mg Tablet PO (16:16)
[2020-07-04] MEDS: tamsulosin 0.4 mg Capsule PO (20:00)
[2020-07-04] MEDS: metoprolol tartrate 25 mg Tablet 12.5 MG PO (21:30)
[2020-07-05] VITALS (7 sets, daily range): BP systolic 130–160; BP diastolic 68–75; PULSE 42–63; RESP 16–18; TEMP 36.6–36.7; O2SAT 91–96
--- NOTE | 2020-07-05 05:39 | PC.NURSE ---
pt has rested well throughout the night. pt vital signs checked every 2 hours due to hypertensive crisis episode.
[2020-07-05 05:50] LABS: Basophils % 0.6 %; Eosinophils # 0.2 10^3/uL (0.0-0.8); Eosinophils % 2.6 %; Hemoglobin 15.2 g/dL (11.7-16.6); Lymphocytes # 1.8 10^3/uL (0.8-4.8); Lymphocytes % 25.5 %; Mean Corpuscular Hemoglobin 30.1 pg (28.0-34.0); Mean Corpuscular Volume 91.1 fL (80-94); Mean Platelet Volume 13.4 fL (7.4-10.4); Monocytes # 0.4 10^3/uL (0.2-0.9); Neutrophils # 4.56 10^3/uL (1.8-7.7); Nucleated Red Blood Cells % 0 %; Platelet Count 80 10^3/cmm (130-400); Red Blood Count 5.05 10^6/uL (4.1-5.3); Red Cell Distribution Width 13.6 % (12.1-15.1)
[2020-07-05 06:31] LABS: Alanine Aminotransferase 12 U/L (0-41); Albumin Level 3.7 g/dL (3.5-5.2); Alkaline Phosphatase 58 IU/L (40-130); Anion Gap 12.6 (5-19); Aspartate Amino Transferase 14 U/L (0-40); Blood Urea Nitrogen 18 mg/dL (8-23); Calcium 9.1 mg/dL (8.5-10.5); Carbon Dioxide 26 mmol/L (22-29); Chloride 104 mmol/L (98-107); Globulin 2.6 g/dL (1.3-4.6); Glomerular Filtration Rate 50.7 mL/min (90-130); Glucose 95 mg/dL (65-115); Osmolality Calculated 290 mOsm/kg (285-295); Potassium 3.6 mmol/L (3.5-5.1); Sodium 139 mmol/L (136-145); Total Bilirubin 0.7 mg/dL (0.15-1.2); Total Protein 6.3 g/dL (6.6-8.7)
[2020-07-05] MEDS: amlodipine 5 mg Tablet PO (08:13)
[2020-07-05] MEDS: pantoprazole DR 40 mg Tablet PO (08:13)
[2020-07-05] MEDS: clopidogrel 75 mg Tablet PO (08:13)
[2020-07-05] MEDS: aspirin 81 mg EC Tablet PO (08:13)
[2020-07-05] MEDS: lisinopril 20 mg Tablet 40 MG PO (08:13)
[2020-07-05] MEDS: metoprolol tartrate 25 mg Tablet 12.5 MG PO (08:13)
--- NOTE | 2020-07-05 08:21 | PC.NURSE ---
Dr. Ybarra in to see patient discussed plan of care to discharge home with medication to treat hypertension, verbalized understanding and denies further questions or concerns.
--- NOTE | 2020-07-05 08:37 | USCV_ITS ---
Garrison Reyes Age: 64 Gender: M : 1955 Exam Date: 07/05/2020 09:03 Ordering Phys: Memo Ybarra MD Technologist: Les Gracia Exam Location: [facility] – [place] Indication: CVA BP: 130 / 70 HR: 49 Rhythm: Sinus Technical Quality: Good MEASUREMENTS (Male / Female) Normal Values 2D ECHO LV Diastolic Diameter PLAX 4.9 cm 4.2 - 5.9 / 3.9 - 5.3 cm LV Systolic Diameter PLAX 3.9 cm IVS Diastolic Thickness 1.2 cm 0.6 - 1.0 / 0.6 - 0.9 cm IVS Systolic Thickness 1.4 cm LVPW Diastolic Thickness 1.1 cm 0.6 - 1.0 / 0.6 - 0.9 cm LVPW Systolic Thickness 1.3 cm LVOT Diameter 2.1 cm LV Ejection Fraction 2D Teich 33.1 % LV Ejection Fraction MOD 2C 69.5 % LV Ejection Fraction 2C AL 67.6 % LA Diameter 3.7 cm LA Width 4.9 cm LA Height 4.9 cm RA Width 3.2 cm RA Height 4.0 cm M-MODE LV Diastolic Diameter MM 5.7 cm 4.2 - 5.9 / 3.9 - 5.3 cm LV Systolic Diameter MM 3.4 cm LV Ejection Fraction MM Teich 69.8 % IVS Diastolic Thickness MM 1.1 cm 0.6 - 1.0 / 0.6 - 0.9 cm IVS Systolic Thickness MM 1.7 cm LVPW Diastolic Thickness MM 1.6 cm 0.6 - 1.0 / 0.6 - 0.9 cm LVPW Systolic Thickness MM 2.3 cm RV Diastolic Diameter MM 1.9 cm Aortic Annulus Diameter 3.8 cm LA Ao Ratio MM 1.0 MV E Point Septal Separation 1.4 cm DOPPLER AV Peak Velocity 163.0 cm/s LVOT Peak Velocity 99.0 cm/s AV Area Cont Eq vti 1.9 cm squared AV Area Cont Eq pk 2.1 cm squared MV Area PHT 5.1 cm squared Mitral E to A Ratio 1.5 MV E' Velocity 36.5 cm/s Mitral E to MV E' Ratio 14.2 Mitral E to LV E' Lateral Ratio 10.9 Mitral E to LV E' Septal Ratio 20.1 TR Peak Velocity 147.3 cm/s TR Peak Gradient 8.7 mmHg TV Peak E Velocity 62.0 cm/s Right Atrial Pressure 3.0 mmHg Pulmonary Artery Systolic Pressu 11.7 mmHg FINDINGS Left Ventricle Normal left ventricular size and systolic function. Moderate concentric left ventricular hypertrophy with no regional wall motion abnormalities. Left ventricular ejection fraction is estimated at 65 %. Grade II diastolic dysfunction (abnormal relaxation filling pattern), elevated filling pressures. Right Ventricle Normal right ventricular size and systolic function. Right ventricular systolic pressure 11.7 mmHg. Right Atrium Normal right atrial size. Left Atrium Mildly increased left atrial size. Mitral Valve Mildly thickened mitral valve. No mitral valve stenosis. Trace mitral valve regurgitation. Aortic Valve Structurally normal trileaflet aortic valve. No aortic valve stenosis. Trace aortic valve regurgitation. Tricuspid Valve Structurally normal tricuspid valve. No tricuspid valve stenosis. Trace tricuspid valve regurgitation. Pulmonic Valve Structurally normal pulmonic valve. No pulmonary valve stenosis. Trace pulmonary valve regurgitation. Pericardium No pericardial effusion. Aorta Normal size aortic root. CONCLUSIONS 1. Normal left ventricular size and systolic function. Moderate concentric left ventricular hypertrophy with no regional wall motion abnormalities. Left ventricular ejection fraction is estimated at 65 %. Grade II diastolic dysfunction (abnormal relaxation filling pattern), elevated filling pressures. 2. Normal right ventricular size and systolic function. 3. No significant valvular abnormalities. 4. Normal pulmonary artery pressure. 5. No prior similar studies to compare. Elizabeth Capone MD (Electronically Signed) Final Date: 05 July 2020 23:45 S
--- NOTE | 2020-07-05 08:50 | P.DS_ITS ---
Discharge Providers Date of Admission: 07/03/20 16:12 Date of Discharge: July 05, 2020 Attending Provider at Admission: Memo Ybarra MD Attending Provider at Discharge: Memo Ybarra MD Primary Care Provider: Morgan Landa Jr, MD Diagnoses at Discharge Discharge Diagnosis (1) Cerebrovascular accident: Status: Acute (2) Hypertensive emergency: Status: Acute (3) Tobacco abuse: Status: Acute (4) Peripheral vascular disease: Status: Acute Problem details: Including carotid artery. (5) Thrombocytopenia: Status: Acute (6) Dyslipidemia: Status: Acute (7) Hypomagnesemia: Status: Acute (8) COPD suggested by initial evaluation: Status: Acute (9) Sinus bradycardia: Status: Acute Reason for Visit Reason for Visit: poss TIA Hospital Course Discharge Summary: Patient presented with hypertensive emergency and signs and symptoms of cerebrovascular accident. Patient did not meet criteria for TPA. He was admitted to ICU on Cardene drip and permissive hypertension allowed for 24 hours after which patient transferred to [facility] with initiation of antihypertensive medications. Patient's metoprolol initially was decreased to lower dose from 50 mg twice daily patient takes at home but he continued to be bradycardic and therefore decision is made to complete discontinue it. Patient was told to keep blood pressure and heart rate log 3 times daily to present to primary care physician next visit for medication adjustment. Amlodipine and Flomax were started and patient's blood pressure appears to be under much better control. Patient reports that his sensation is completely recovered except reports very minimal change in sensation of his right index finger which she also had yesterday but did not mention to me. Reports that it is not numb anymore but sensation is slightly different . Patient this morning denies any shortness of breath or chest pain. Denies any abdominal pain. Reports good appetite and oral intake. Shows no evidence of dysphagia. Apparently echocardiogram was not done and will be done early this morning and if shows no evidence of cardioembolic source patient will be dismissed home. I will request outpatient follow-up with hematology service for further evaluation of thrombocytopenia which appears to be chronic. Hepatitis panel was requested but not back yet. Patient shows no evidence of infectious process. Patient shows no evidence of GI bleed. Outpatient follow-up with Dr. Campos will also be requested. Patient will need to have outpatient PFT performed for suspected COPD. Discussion was made for patient to quit smoking. He voiced understanding but does not want any p harmacological help. Throughout hospital stay patient remained in sinus bradycardia. No evidence of atrial fibrillation or flutter. Physical Exam Const: COMMON NORMALS: no acute distress and patient oriented x3 Resp: COMMON NORMALS: normal respiratory effort and clear to auscultation bilaterally AUSCULTATION: clear to auscultation bilaterally Cardio: COMMON NORMALS: regular rate, regular rhythm and S2 normal heart sound present RATE: regular rate RHYTHM: regular rhythm HEART SOUNDS: S2 normal heart sound present OTHER: No lower extremity edema GI: COMMON NORMALS: Normal to inspection, nondistended, normoactive bowel sounds present, Soft to palpation and non-tender PALPATION: Yes Soft to palpation Neuro: COMMON NORMALS: patient oriented x3 and no focal motor deficits Discharge Data Data Completed and Pending: Completed Studies During Hospitalization Category Date Time Status CT angio headneck * [id number] Urge nt Cat Scan 07/03/20 14:[address] head wo con* [id number] Stat Cat Scan 07/03/20 13:03 Completed XR chest 1V corinna ble [id number] Stat Exams 07/03/20 13:03 Completed Pending at discharge Category Date Time Status Complete Blood Co unt w/Auto DAILY Lab 07/06/20 10:00 Ordered Comprehensive Met abolic Panel AM LA BS Lab 07/06/20 04:00 Ordered Magnesium AM LABS Lab 07/06/20 04:00 Ordered Magnesium AM LABS Lab 07/07/20 04:00 Ordered CV echo complete* [id number] Urgent Ultrasound 07/05/20 08:37 Ordered Labs from last 24 hours 07/05/20 07/05/20 07/05/20 05:05 05:05 05:05 WBC 7.0 RBC 5.05 Hgb 15.2 Hct 46.0 MCV 91.1 MCH 30.1 MCHC 33.0 RDW 13.6 Plt Count 80 L MPV 13.4 H Neut % (Auto) 65.0 Lymph % (Auto) 25.5 [place] % (Auto) 6.0 Eos % (Auto) 2.6 Baso % (Auto) 0.6 Neut # (Auto) 4.56 Lymph # (Auto) 1.8 [place] # (Auto) 0.4 Eos # (Auto) 0.2 Baso # (Auto) 0.0 Nucleated RBC % (a uto) 0 Nucleated RBCs # 0.0 Sodium 139 Potassium 3.6 Chloride 104 Carbon Dioxide 26 Anion Gap 12.6 BUN 18 Creatinine 1.4 H GFR Calculation 50.7 L Glucose 95 Calculated Osmolal ity 290 Calcium 9.1 Magnesium 2.0 Total Bilirubin 0.7 AST 14 ALT 12 Alkaline Phosphata se 58 Total Protein 6.3 L Albumin 3.7 Globulin 2.6 Vitals: Last Vital Signs Temp 97.9 F 07/05/20 08:00 Pulse 42 L 07/05/20 08:00 Resp 18 07/05/20 08:00 BP 138/71 07/05/20 08:00 Pulse Ox 95 07/05/20 05:00 Discharge Plan Discharge Patient Disposition: Home Condition: Stable Prescriptions: New clopidogrel 75 mg Tablet 75 mg PO DAILY Qty: 30 RF: 0 amlodipine 5 mg Tablet 5 mg PO DAILY Qty: 30 RF: 0 aspirin 81 mg Tablet,Delayed Release (Dr/Ec) 81 mg PO DAILY Qty: 30 RF: 0 tamsulosin 0.4 mg Capsule 0.4 mg PO BEDTIME Qty: 30 RF: 0 hydralazine 25 mg tablet 25 mg PO TID PRN (Reason: BP > 160/100) Qty: 20 RF: 0 Continued atorvastatin 40 mg Tablet 40 mg PO QPM RF: 0 lisinopril 40 mg Tablet 40 mg PO DAILY RF: 0 Discontinued metoprolol tartrate 50 mg Tablet 50 mg PO BID RF: 0 Discharge Orders: Discharge Order (Routine); Ordered 07/05/20 Ordered By: Memo Ybarra Referrals: Denise Campos MD [Physician] - 1 week (Dr Campos's office will call you Tuesday with an appointment. If you don't hear from them please call [phone].) Wiliam Padron MD [Hospitalist] - 1 week Morgan Landa Jr, MD [Primary Care Provider] - 4-7 days Discharge Diet: Advance as tolerated Discharge Activity: Resume usual activity Patient Instructions: Aspirin (By mouth), Hydralazine (By mouth), Amlodipine (By mouth), Tamsulosin (By mouth), Clopidogrel (By mouth), Transient Ischemic Attack (DC), Hypertensive Crisis (DC) Activity Restrictions/Additional Instructions: Please call your doctor or present to emergency department if your condition worsens or you develop diarrhea, lightheadedness, fatigue or see blood in your stool or black stool. Please note that I am requesting outpatient follow-up with engine dynamometer tester to further evaluate thrombocytopenia. Please discuss with your doctor to have pulmonary function test performed after discharge for suspected COPD. Please immediately come back if you develop new neurological signs and symptoms. Please discuss with your doctor anytime you want to initiate [id number] supplements. Please keep blood pressure and heart rate log 3 times daily to present to primary care physician next visit for medication adjustment. 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
--- NOTE | 2020-07-05 09:50 | PC.NURSE ---
discharged via wheelchair to private car, discussed discharge instructions, denies further questions or concerns.
== END 2020-07-05 10:00 | disposition home or self-care (01) | DRG 65 ==
LOC: ER 17:06 → ICU 18:17 → MEDSURG 07-04 18:49
PROVIDERS: Emergency Medicine; Admitting Provider Internal Medicine; PCP Family Medicine; Visit Provider Internal Medicine
DX: I63.9 Cerebral infarction, unspecified (principal); I16.1 Hypertensive emergency; R47.81 Slurred speech; R20.8 Other disturbances of skin sensation; G83.21 Monoplegia of upper limb affecting right dominant side; R29.701 NIHSS score 1; I10 Essential (primary) hypertension; I25.10 Atherosclerotic heart disease of native coronary artery without angina pectoris; Z95.5 Presence of coronary angioplasty implant and graft; Z79.82 Long term (current) use of aspirin; F17.210 Nicotine dependence, cigarettes, uncomplicated; Z90.79 Acquired absence of other genital organ(s); I73.9 Peripheral vascular disease, unspecified; D69.6 Thrombocytopenia, unspecified; E78.5 Hyperlipidemia, unspecified; E83.42 Hypomagnesemia; J44.9 Chronic obstructive pulmonary disease, unspecified; I65.21 Occlusion and stenosis of right carotid artery
CPT/HCPCS: 12345; 36415; 70450; 70496; 70498; 71045; 80053; 81001; 83735; 84484; 85025; 85610; 85730; 92523; 92610; 93005; 93306; 96375; 97116; 97161; 97165; 97530; 99284; J0360; J3475; Q9967

== ENCOUNTER 2022-02-17 12:58 | Observation (INO) | payer MEDICARE, SELFPAY ==
[2022-02-17] VITALS (20 sets, daily range): BP systolic 152–218; BP diastolic 78–109; PULSE 45–86; RESP 11–19; TEMP 36.6; O2SAT 93–98; BMI 23.3
--- NOTE | 2022-02-17 13:05 | ECG_ITS ---
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 Measurements Intervals Social Circle Rate: 44 P: 66 WA: 185 QRS: 55 QRSD: 129 T: -64 QT: 474 QTc: 407 Interpretive Statements SINUS BRADYCARDIA POSSIBLE INFERIOR MYOCARDIAL INFARCTION , OF INDETERMINATE AGE [30 ms Q WAVE IN II/aVF] MODERATE T-WAVE ABNORMALITY, CONSIDER LATERAL ISCHEMIA [-0.1+ mV T-WAVE IN I/aVL/V5/V6] Compared to ECG 07/03/2020 14:57:50 Myocardial infarct finding now present Intraventricular conduction delay no longer present T-wave abnormality still present Possible ischemia still present Electronically Signed On 02-17-2022 20:14:44 CDT by Minda Angelo M.D. [id number]
--- NOTE | 2022-02-17 13:05 | CTR_ITS ---
PROCEDURE INFORMATION: Exam: CT Head Without Contrast Exam date and time: 02/17/2022 1:11 PM Age: 66 years old Clinical indication: Other: Tingling in extremities, lethargy, patient HX: Elevated blood pressure, dizzy, weakness, ; additional info: Symptoms of acute stroke TECHNIQUE: Imaging protocol: Computed tomography of the head without contrast. Radiation optimization: All CT scans at this facility use at least one of these dose optimization techniques: automated exposure control; mA and/or kV adjustment per patient size (includes targeted exams where dose is matched to clinical indication); or iterative reconstruction. COMPARISON: CT head wo con* [id number] 07/03/2020 12:56 PM RADIATION DOSE METRICS: Total DLP (mGy-cm): 779.03 FINDINGS: Brain: No hemorrhage, mass effect or midline shift. No acute, major vascular distribution infarction identified. There is foci of decreased attenuation in the periventricular and subcortical white matter, likely representing chronic small vessel ischemic changes. Mild cerebral volume loss is present. No intra-axial or extra-axial fluid collection seen. Cerebral ventricles: No ventriculomegaly. Paranasal sinuses: Mucosal thickening of the sphenoid sinuses noted. Other paranasal sinuses are well aerated. Mastoid air cells: Visualized mastoid air cells are well aerated. Bones/joints: Unremarkable. No acute fracture. Soft tissues: Unremarkable. CT/CT head wo con* [id number] IMPRESSION: No acute intracranial abnormality.
--- NOTE | 2022-02-17 13:05 | XR_ITS ---
WS: [id number] Exam: XR chest 1V portable [id number] Date/Time of Exam: 02/17/2022 1:19 PM Reason For Exam: dyspnea Comparison 07/03/2020 Findings: The lungs are clear and fully expanded. Costophrenic angles are sharp. No infiltrates. Bronchovascula r relief appears normal. Cardiac silhouette is unremarkable. Bony elements are intact. XR/XR chest 1V portable [id number] IMPRESSION: Unremarkable chest radiograph.
--- NOTE | 2022-02-17 13:12 | ED_ITS ---
HPI - Neuro Symptoms/Deficit General: Chief Complaint: Neuro Symptoms/Deficit Stated Complaint: WEAKNESS LOWER EXT, LEFT SIDE DROOP Time Seen by Provider: 02/17/22 13:04 Source: patient Mode of arrival: EMS Limitations: no limitations History of Present Illness: 66-year-old male presents emergency room with complaint of facial droop to began around 1030 this morning and numbness and tingling in his left arm and leg. He notices blood pressure been elevated he had a frontal headache. Patient states he previously has had TIAs. Onset (ago): minute(s) Last Observed Normal: 10:30 Location: left arm and left leg History of same: No Severity: mild Quality: weak and numb Relieving factors: none Exacerbating factors: none Associated symptoms: Deny chest pain, cough, diaphoresis, fevers/chills, headache(s), anorexia, malaise, nausea, seizures, short of breath, syncope, tingling, vertigo, vomiting or weakness Treatments Prior to Arrival: none Review of Systems Const: Denies: fever(s), chills, fatigue, malaise or diaphoresis ENMT: Denies: throat pain, ear or mastoid pain, nasal discharge or nasal congestion Card: Denies: chest pain or syncope Resp: Denies: dyspnea, productive cough or non-productive cough GI: Denies: nausea or vomiting : Denies: flank pain, dysuria, urinary frequency or urinary urgency Skin/Breast: Denies: rash or pruritus Neuro: Denies: headache(s) or vertigo PFSH ED PFSH: Medical History Coronary artery disease Hypertension Sinus bradycardia TIA (transient ischemic attack) Tobacco abuse Tonsillectomy planned Undescended testis Surgical History History of orchiectomy S/P coronary angiogram Family History Mother CAD (coronary artery disease) Liver disease Father Cancer Sister Pacemaker Brother Kidney failure Social History Smoking and tobacco status: current every day smoker Second hand smoke exposure: Yes Alcohol intake: current Desire information about alcohol rehabilitation?: No Counseling given: No NIH stroke score NIHSS: Level Of Consciousness - 1a: 0 Level Of Consciousness Questions - 1b: Both Correct Level Of Consciousness Commands - 1c: Both Correct Best Gaze - 2: Normal Visual Arana - 3: No Visual Loss Facial Palsy - 4: No rmal Motor Arm Right - 5: No Drift Motor Arm Left - 5: No Drift Motor Leg Right - 6: No Drift Motor Leg Left - 6: No Drift Limb Ataxia - 7: Absent Sensory - 8: Normal Best Language - 9: No Aphasia Dysarthia - 10: Mild/Moderate Dysarthia Extinction And Inattention - 11: 0 Score: Total Score: 1 Physical Exam Const: COMMON NORMALS: no acute distress GENERAL APPEARANCE: cooperative and comfortable ORIENTATION/CONSCIOUSNESS: Yes awake, Yes oriented to person, Yes oriented to place and Yes oriented to time HENMT: COMMON NORMALS: normocephalic, atraumatic, hearing grossly normal bilaterally, external ears normal, EAC's normal, TM's normal bilaterally, Normal nasal mucous membranes and turbinates present, moist oral mucous membranes and oropharynx normal HEAD & SCALP: normocephalic and atraumatic NOSE: Normal nasal mucous membranes and turbinates present EXTERNAL EAR: Yes external ears normal EXTERNAL AUDITORY CANAL: EAC's normal TYMPANIC MEMBRANE: TM's nor mal bilaterally Eye: COMMON NORMALS: Equal, round and reactive pupils present, EOMs intact bilaterally, conjunctivae normal and no scleral icterus CONJUNCTIVA: Yes conjunctivae normal PUPIL: Yes Equal, round and reactive pupils present Neck/C-Spine: COMMON NORMALS: full ROM, no lymphadenopathy, supple and no JVD Lymph: LYMPHATIC: no lymphadenopathy noted and no lymphedema noted Resp: COMMON NORMALS: normal respiratory effort, No retractions, No use of accessory muscles and clear to auscultation bilaterally AUSCULTATION: clear to auscultation bilaterally Cardio: COMMON NORMALS: no JVD, regular rate, regular rhythm and No murmurs present (Cardio) RATE: regular rate RHYTHM: regular rhythm GI: COMMON NORMALS: Soft to palpation and No hepatosplenomegaly present AUSCULTATION: Yes normoactive bowel sounds PALPATION: Yes Soft to palpation, No Tenderness to palpation present (GI), No Guarding due to palpation present (GI) and Yes No hepatosplenomegaly present Extremity: COMMON NORMALS: normal to inspection, capillary refill normal, no clubbing, cyanosis or edema, no calf tenderness and no pedal edema Neuro: SENSORIUM/ORIENTATION: Yes oriented to person, Yes oriented to place and Yes oriented to time Skin: COMMON NORMALS: no rashes or lesions noted GENERAL SKIN EXAM: no rashes or lesions noted Course Vital Signs: Vital signs: Vital Signs Temperature 98.0 F 02/18/22 16:07 Pulse Rate 48 L 02/18/22 16:07 Respiratory Rate 16 02/18/22 16:07 Blood Pressure 166/89 02/18/22 16:07 Pulse Oximetry 97 02/18/22 16:07 MDM - Neuro Symptoms/Deficit Medical Decision Making At most patient has mild slurring of words but really nothing else he reports numbness in the left arm and leg but when he test him he passes all the test for the [employer] without a problem he had reported a facial droop but I do not appreciate at the time of exam. Given his history we will go ahead and admit him discussed with hospitalist orders written Medical Records I reviewed the patient's medical records. Lab Data I reviewed the patient's lab results. : 02/18/22 05:00 02/18/22 05:00 Radiology Impressions Chest X-Ray 02/17/22 13:05 IMPRESSION: Unremarkable chest radiograph. Head CT 02/17/22 13:05 IMPRESSION: No acute intracranial abnormality. Head/Neck CTA 02/17/22 13:48 IMPRESSION: 1. No acute intracranial abnormality. 2. No large vessel occlusion. 3. Focal areas of moderate stenosis in the cavernous and paraophthalmic segments of the right internal carotid artery. 4. Focal areas of [id number] stenosis in the left vertebral artery at the level of the skull base. IMPRESSION: No stenosis or occlusion. REFERENCES: NASCET CRITERIA. The degree of internal carotid artery stenosis is based on NASCET criteria. Normal is no stenosis. Mild is less than 50% stenosis. Moderate is 50-69% stenosis. Severe is 70% to 99% stenosis. Total occlusion is no detectable patent lumen. Head MRI 02/18/22 09:30 IMPRESSION: 1. No evidence of restricted diffusion to suggest acute ischemia. 2. Mild small vessel changes with mild parenchymal volume loss. 3. 4 mm focus of hemosiderin in the RIGHT frontal lobe likely due to cavernoma or punctate chronic focus of hemorrhage. 4. Mild mucosal thickening in the paranasal sinuses 5. No other acute findings. Laboratory Results WBC 7.6 10^3/uL (4.0-10.0) 02/17/22 13:21 RBC 5.74 10^6/uL (4.1-5.3) H 02/17/22 13:21 Hgb 17.4 g/dL (11.7-16.6) H 02/17/22 13:21 Hct 52.2 % (42.0-52.0) H 02/17/22 13:21 MCV 90.9 fl (80-94) 02/17/22 13:21 MCH 30.3 pg (28.0-34.0) 02/17/22 13:21 MCHC 33.3 g/dL (30.0-36.0) 02/17/22 13:21 RDW 12.9 % (12.1-15.1) 02/17/22 13:21 Plt Count 110 10^3/cmm (130-400) L 02/17/22 13:21 MPV 12.9 fL (7.4-10.4) H 02/17/22 13:21 Neut % (Auto) 73.7 % 02/17/22 13:21 Lymph % (Auto) 18.6 % 02/17/22 13:21 [place] % (Auto) 5.5 % 02/17/22 13:21 Eos % (Auto) 1.6 % 02/17/22 13:21 Baso % (Auto) 0.5 % 02/17/22 13:21 Neut # (Auto) 5.62 10^3/uL (1.8-7.7) 02/17/22 13:21 Lymph # (Auto) 1.4 10^3/uL (0.8-4.8) 02/17/22 13:21 [place] # (Auto) 0.4 10^3/uL (0.2-0.9) 02/17/22 13:21 Eos # (Auto) 0.1 10^3/uL (0.0-0.8) 02/17/22 13:21 Baso # (Auto) 0.0 10^3/uL (0.0-0.1) 02/17/22 13:21 Nucleated RBC % (auto) 0 % 02/17/22 13:21 Nucleated RBCs # 0.0 /100WBC 02/17/22 13:21 PT 13.50 SECONDS (12.1-14.9) 02/17/22 13:21 INR 1.00 (0.8-1.2) 02/17/22 13:21 APTT 30.2 SECONDS (23.9-36.7) 02/17/22 13:21 Sodium 141 mmol/L (136-145) 02/17/22 13:21 Potassium 3.6 mmol/L (3.5-5.1) 02/17/22 13:21 Chloride 104 mmol/L (98-107) 02/17/22 13:21 Carbon Dioxide 24 mmol/L (22-29) 02/17/22 13:21 Anion Gap 16.6 (5-19) 02/17/22 13:21 BUN 14 mg/dL (8-23) 02/17/22 13:21 Creatinine 1.2 mg/dL (0.7-1.2) 02/17/22 13:21 GFR Calculation 60.2 mL/min (90-130) L 02/17/22 13:21 Glucose 120 mg/dL (65-115) H 02/17/22 13:21 Estimat Average Glucose 114 02/17/22 13:21 Hemoglobin A1c 5.6 % (4.0-6.0) 02/17/22 13:21 Calculated Osmolality 294 mOsm/kg (285-295) 02/17/22 13:21 Calcium 9.2 mg/dL (8.5-10.5) 02/17/22 13:21 Total Bilirubin 0.4 mg/dL (0.15-1.2) 02/17/22 13:21 AST 14 U/L (0-40) 02/17/22 13:21 ALT 11 U/L (0-41) 02/17/22 13:21 Alkaline Phosphatase 60 IU/L (40-130) 02/17/22 13:21 Troponin T Baseline 12 ng/L (0-15) 02/17/22 13:21 Troponin T 120 Minute 11.75 ng/L (0-15) 02/17/22 14:30 Delta Troponin T -0.25 ABS# (0-10) L 02/17/22 14:30 Total Protein 7.1 g/dL (6.6-8.7) 02/17/22 13:21 Albumin 4.6 g/dL (3.5-5.2) 02/17/22 13:21 Globulin 2.5 g/dL (1.3-4.6) 02/17/22 13:21 Urine Color Yellow (Yellow) 02/17/22 13:46 Urine Appearance Clear (CLEAR) 02/17/22 13:46 Urine pH 5 (5-7) 02/17/22 13:46 Ur Specific [place] 1.020 (1.005-1.030) 02/17/22 13:46 Urine Protein Neg (Negative) 02/17/22 13:46 Urine Glucose (UA) Norm (Normal) 02/17/22 13:46 Urine Ketones Negative (Negative) 02/17/22 13:46 Urine Blood Neg (Negative) 02/17/22 13:46 Urine Nitrate Negative (Negative) 02/17/22 13:46 Urine Bilirubin Neg (Negative) 02/17/22 13:46 Urine Urobilinogen Norm mg/dL (Negative) 02/17/22 13:46 Ur Leukocyte Esterase Negative (Negative) 02/17/22 13:46 Urine Opiates Screen Negative ng/mL (Negative) 02/17/22 13:46 Ur Barbiturates Screen Negative ng/mL (Negative) 02/17/22 13:46 Ur Phencyclidine Scrn Negative ng/mL (Negative) 02/17/22 13:46 Ur Amphetamines Screen Negative ng/mL (Negative) 02/17/22 13:46 U Benzodiazepines Scrn Negative ng/mL (Negative) 02/17/22 13:46 Urine Cocaine Screen Negative ng/mL (Negative) 02/17/22 13:46 U Marijuana (THC) Screen Negative ng/mL (Negative) 02/17/22 13:46 Lyme Ab (Western Blot) <0.90 index 02/17/22 13:21 E. chaffeensis IgG Ab <1:64 02/17/22 13:21 E. chaffeensis IgM Ab <1:20 02/17/22 13:21 E. chaffeensis Interp See note 02/17/22 13:21 E. 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
[2022-02-17 13:44] LABS: Basophils % 0.5 %; Eosinophils # 0.1 10^3/uL (0.0-0.8); Eosinophils % 1.6 %; Hematocrit 52.2 % (42.0-52.0); Hemoglobin 17.4 g/dL (11.7-16.6); Lymphocytes # 1.4 10^3/uL (0.8-4.8); Lymphocytes % 18.6 %; Mean Corpuscular HGB Conc 33.3 g/dL (30.0-36.0); Mean Corpuscular Hemoglobin 30.3 pg (28.0-34.0); Mean Corpuscular Volume 90.9 fl (80-94); Mean Platelet Volume 12.9 fL (7.4-10.4); Monocytes # 0.4 10^3/uL (0.2-0.9); Monocytes % 5.5 %; Neutrophils # 5.62 10^3/uL (1.8-7.7); Neutrophils % 73.7 %; Nucleated Red Blood Cells % 0 %; Platelet Count 110 10^3/cmm (130-400); Red Blood Count 5.74 10^6/uL (4.1-5.3); Red Cell Distribution Width 12.9 % (12.1-15.1); White Blood Count 7.6 10^3/uL (4.0-10.0)
[2022-02-17] MEDS: enalaprilat 1.25 mg/mL Inj IVP (13:48)
[2022-02-17] MEDS: hyDRALAzine 20 mg/mL INJ 1 mL IVP (13:48)
--- NOTE | 2022-02-17 13:48 | CTR_ITS ---
PROCEDURE INFORMATION: Exam: CT Angiography Head With Contrast, Arteriography Exam date and time: 02/17/2022 3:12 PM Age: 66 years old Clinical indication: Weakness; Additional info: Tia/accelerated HTN TECHNIQUE: Imaging protocol: Computed tomography angiography of the head with contrast. Exam focused on the arteries. 3D rendering (Not supervised by radiologist): MIP and/or 3D reconstructed images were created by the technologist. Radiation optimization: All CT scans at this facility use at least one of these dose optimization techniques: automated exposure control; mA and/or kV adjustment per patient size (includes targeted exams where dose is matched to clinical indication); or iterative reconstruction. Contrast material: OMNI 3550; Contrast volume: 75 ml; Contrast route: INTRAVENOUS (IV); COMPARISON: CT angio headneck* [id number] 07/03/2020 3:18 PM RADIATION DOSE METRICS: Total DLP (mGy-cm): 2102.8 FINDINGS: ANTERIOR CIRCULATION: Right internal carotid artery: There is focal areas of moderate stenosis in the cavernous and paraophthalmic segments of the right internal carotid artery. No aneurysm. Right middle cerebral artery: Unremarkable. No occlusion or significant stenosis. No aneurysm. Right anterior cerebral artery: Unremarkable. No occlusion or significant stenosis. No aneurysm. Left internal carotid artery: There is focal areas of mild stenosis in the cavernous and paraophthalmic segments of the left internal carotid artery. No aneurysm. Left middle cerebral artery: Unremarkable. No occlusion or significant stenosis. No aneurysm. Left anterior cerebral artery: Unremarkable. No occlusion or significant stenosis. No aneurysm. POSTERIOR CIRCULATION: Right vertebral artery: There is focal areas of mild stenosis in the right vertebral artery at the level of the skull base. No occlusion. No aneurysm. Left vertebral artery: There is focal areas of [id number] stenosis in the left vertebral artery at the level of the skull base. No occlusion. No aneurysm. Basilar artery: Unremarkable. No occlusion or significant stenosis. No aneurysm. Right posterior cerebral artery: Unremarkable. No occlusion or significant stenosis. No aneurysm. Left posterior cerebral artery: Unremarkable. No occlusion or significant stenosis. No aneurysm. Brain: No hemorrhage, mass effect or midline shift. No acute, major vascular distribution infarction identified. There is foci of decreased attenuation in the periventricular and subcortical white matter, likely representing chronic small vessel ischemic changes. Mild cerebral volume loss is present. No intra-axial or extra-axial fluid collection seen. Cerebral ventricles: No ventriculomegaly. Mastoid air cells: Visualized mastoid air cells are well aerated. Paranasal sinuses: Visualized sinuses are unremarkable. No fluid levels. Bones/joints: Unremarkable. No acute fracture. Soft tissues: Unremarkable. PROCEDURE INFORMATION: Exam: CT Angiography Neck With Contrast Exam date and time: 02/17/2022 3:12 PM Age: 66 years old Clinical indication: Weakness; Additional info: Tia/accelerated HTN TECHNIQUE: Imaging protocol: Computed tomography angiography of the neck with contrast. 3D rendering (Not supervised by radiologist): MIP and/or 3D reconstructed images were created by the technologist. Radiation optimization: All CT scans at this facility use at least one of these dose optimization techniques: automated exposure control; mA and/or kV adjustment per patient size (includes targeted exams where dose is matched to clinical indication); or iterative reconstruction. Contrast material: OMNI 3550; Contrast volume: 75 ml; Contrast route: INTRAVENOUS (IV); COMPARISON: CT angio headneck* [id number] 07/03/2020 3:18 PM RADIATION DOSE METRICS: Total DLP (mGy-cm): 2102.8 FINDINGS: Right common carotid artery: No stenosis. No dissection or occlusion. Right internal carotid artery: No stenosis of the extracranial segment. No dissection or occlusion. Right external carotid artery: No occlusion or stenosis of the origin. Left common carotid artery: No stenosis. No dissection or occlusion. Left internal carotid artery: No stenosis of the extracranial segment. No dissection or occlusion. Left external carotid artery: No occlusion or stenosis of the origin. Right vertebral artery: No stenosis. No dissection or occlusion. Left vertebral artery: No stenosis. No dissection or occlusion. Soft tissues: Normal. No significant soft tissue swelling. Bones/joints: No acute fracture. Degenerative changes of the spine seen. Lungs: Centrilobular emphysema is present. CT/CT angio headneck* [id number] IMPRESSION: 1. No acute intracranial abnormality. 2. No large vessel occlusion. 3. Focal areas of moderate stenosis in the cavernous and paraophthalmic segments of the right internal carotid artery. 4. Focal areas of [id number]-eq-roipkqdr stenosis in the left vertebral artery at the level of the skull base. IMPRESSION: No stenosis or occlusion. REFERENCES: NASCET CRITERIA. The degree of internal carotid artery stenosis is based on NASCET criteria. Normal is no stenosis. Mild is less than 50% stenosis. Moderate is 50-69% stenosis. Severe is 70% to 99% stenosis. Total occlusion is no detectable patent lumen.
--- NOTE | 2022-02-17 14:01 | PC.PHAR ---
pt and pts verified pts medications-pt states he has been taking hydralazine 25mg three to four times a day [facility] last filled 25mg qid prn for bp >160/100-pts states he doesnt take flomax [facility] states they have rx on hold for 0.4mg daily [facility] states they have never filled the medication for the pt-ext med history shows sildenafil 20mg 2 to 5 tabs one hour prior to sexual activity filled 07/02/21 30d/s pts states pt no longer taking-notes are made in the pharmacy comments
[2022-02-17 14:04] LABS: Partial Thromboplastin Time 30.2 SECONDS (23.9-36.7)
[2022-02-17 14:14] LABS: Alanine Aminotransferase 11 U/L (0-41); Albumin Level 4.6 g/dL (3.5-5.2); Alkaline Phosphatase 60 IU/L (40-130); Anion Gap 16.6 (5-19); Aspartate Amino Transferase 14 U/L (0-40); Blood Urea Nitrogen 14 mg/dL (8-23); Calcium 9.2 mg/dL (8.5-10.5); Carbon Dioxide 24 mmol/L (22-29); Chloride 104 mmol/L (98-107); Globulin 2.5 g/dL (1.3-4.6); Glomerular Filtration Rate 60.2 mL/min (90-130); Glucose 120 mg/dL (65-115); Osmolality Calculated 294 mOsm/kg (285-295); Potassium 3.6 mmol/L (3.5-5.1); Sodium 141 mmol/L (136-145); Total Bilirubin 0.4 mg/dL (0.15-1.2); Total Protein 7.1 g/dL (6.6-8.7)
[2022-02-17 14:55] LABS: Add Urine Microscopic? NO; Charge for UA Resulting for Rev
[2022-02-17 14:58] LABS: Bilirubin Urine Neg (Negative); Blood Urine Neg (Negative); Glucose Urine UA Norm (Normal); Ketones Urine Negative (Negative); Leukocyte Esterase Urine Negative (Negative); Nitrate Urine Negative (Negative); Protein Urine Neg (Negative); Urine Appearance Clear (CLEAR); Urine Color Yellow (Yellow); Urobilinogen Urine Norm (Negative); pH Urine 5 (5-7)
[2022-02-17 15:01] LABS: Troponin(5th) Baseline 12 ng/L (0-15)
[2022-02-17 15:05] LABS: Amphetamines Screen Urine Negative (Negative); Barbiturates Screen Urine Negative (Negative); Benzodiazepines Screen Urine Negative (Negative); Cocaine Screen Urine Negative (Negative); Opiate Screen Urine Negative (Negative); PCP Screen Urine Negative (Negative); THC Screen Urine Negative (Negative)
[2022-02-17] MEDS: iohexol 350 mg/mL 100 mL Btl IV (15:15)
--- NOTE | 2022-02-17 15:38 | PC.NURSE ---
Notified Dr. Ozuna of blood pressure, okay to be in this range, does not want to be much lower, patient will be given medication before going to the floor per floor request.
--- NOTE | 2022-02-17 16:13 | PC.NURSE ---
upper partial not with patient
--- NOTE | 2022-02-17 18:21 | P.HP_ITS ---
Providers/Chief Complaint Admitting Physician: Daquan Wilson Chief Complaint: WEAKNESS LOWER EXT, LEFT SIDE DROOP History of Present Illness Pleasant 66-year-old gentleman with past history of mini strokes, cardiovascular disease with coronary disease with stenting in the past, as well as carotid artery less than 50% stenosis during work-up of TIA in 2019, with hypertension, blood pressures intermittently running into 190s and even 200s systolic, 100s diastolic, other times running in 130s systolic, with history of bradycardia due to which she was recommended discontinuing metoprolol during last admission, although he says remember that metoprolol was cut down to half dose but continued, so he continued it that way. 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 Presented to ER after today noticing right-sided facial droop, his brother also notices some mild dysarthria, and numbness and tingling in left arm below elbow and left leg below the knee. Mild frontal in ER noted significantly hypertensive, 215/106, received hydralazine, enalaprilat, subsequently with blood pressure down to 168/93. At the same time heart rate noted to be decreasing into the mid 40s. He reports he has been mowing quite a bit outside, and developed significant sinus drainage, and attributed the headache possibly to sinus issues. He had found about 7 ticks on him, some of them not attached, states none of them were engorged. Denies any rash. No fever, chills, sweats, joint aches. He was assessed for possible CVA in ER. CT of the head without acute intracranial abnormality. He was not found candidate for tPA. CTA head and neck was performed, with no large vessel occlusion. Focal areas of moderate stenosis in the cavernous and periophthalmic segments of the right internal carotid artery. Focal areas of mild to moderate stenosis in left vertebral artery at the level of the skull base. No significant cervical vascular stenosis. He is in the process of establishing with Dr. Ni for primary provider. Review of Systems Const: Denies: fever(s), chills, body aches or malaise Eyes: Denies: change in vision, eye discomfort or eye redness ENMT: Denies: throat pain, oral sores or ear or mastoid pain Card: Denies: chest pain, edema, pre-syncope or dyspnea on exertion Resp: Denies: dyspnea, productive cough, change in phlegm color or hemoptysis GI: Denies: abdominal pain, nausea, vomiting, diarrhea, constipation, hematochezia or melena : Denies: flank pain, difficulty urinating, urinary frequency or hematuria Musc: Denies: back pain, joint swelling or joint redness Skin/Breast: Denies: rash or new lesions Neuro: Reports: headache(s), numbness in extremities and Slurred speech present; Denies: weakness in extremities, dizziness, confusion, difficulty communicating thoughts, seizure-like activity or involuntary movements Endo: Denies: polyuria or polydipsia Boo/Lymph: Denies: easy bleeding or tender lymph nodes All/Imm: Denies: urticaria or tongue swelling Medications/Allergies Home Medications Medication Instructions Recorded Confirmed Last Taken Type atorvastatin 40 mg tablet 40 mg PO QPM 07/03/20 02/17/22 02/16/22 History lisinopril 40 mg tablet 40 mg PO [facility] 07/03/20 02/17/22 02/17/22 History metoprolol succinate 25 mg 25 mg PO [facility] 02/04/22 02/17/22 02/17/22 History tablet,extended release 24 hr amlodipine 5 mg tablet 5 mg PO BID 02/17/22 02/17/22 02/17/22 History aspirin 81 mg tablet,delayed 81 mg PO QA 02/17/22 02/17/22 02/17/22 History release clopidogrel 75 mg tablet 75 mg PO QAM 02/17/22 02/17/22 02/17/22 History hydralazine 25 mg tablet See Rx Instructions .ROUTE .COMPLEX 02/17/22 02/17/22 02/17/22 History 50 mg Allergies Allergy/AdvReac Type Severity Reaction Status Date / Time No Known Allergies Allergy Verified 02/17/22 13:53 PFSH Acute PFSH: Medical History Coronary artery disease Hypertension Sinus bradycardia Tobacco abuse Tonsillectomy planned Undescended testis Surgical History History of orchiectomy S/P coronary angiogram Family History Mother CAD (coronary artery disease) Liver disease Father Cancer Sister Pacemaker Brother Kidney failure Social History Smoking and tobacco status: current every day smoker Second hand smoke exposure: Yes Alcohol intake: current Desire information about alcohol rehabilitation?: No Counseling given: No Vitals/I&O/Wt Last Vital Signs Temp 97.9 F 02/17/22 16:38 Pulse 46 L 02/17/22 16:38 Resp 16 02/17/22 16:38 BP 180/89 02/17/22 16:38 Pulse Ox 98 02/17/22 16:38 Weight last 48 hrs Weight 75.75 kg Weight 75.75 kg Physical Exam Const: COMMON NORMALS: alert GENERAL APPEARANCE: cooperative ORIENTATION/CONSCIOUSNESS: Yes awake HENMT: COMMON NORMALS: normocephalic, EAC's normal, Normal external nose present and moist oral mucous membranes HEAD & SCALP: normocephalic NOSE: Normal external nose present EXTERNAL AUDITORY CANAL: EAC's normal Neck/C-Spine: COMMON NORMALS: no meningeal signs Chest: CHEST: Yes Symmetrical chest wall rise Resp: COMMON NORMALS: clear to auscultation bilaterally AUSCULTATION: clear to auscultation bilaterally Cardio: COMMON NORMALS: regular rate, regular rhythm and No murmurs present (Cardio) RATE: regular rate RHYTHM: regular rhythm GI: COMMON NORMALS: Normal to inspection, nondistended, normoactive bowel sounds present, Soft to palpation and non-tender PALPATION: Yes Soft to palpation Extremity: COMMON NORMALS: no pedal edema Neuro: COMMON NORMALS: moves all extremities SENSORIUM/ORIENTATION: Yes alert MENINGEAL SIGNS: Yes no meningeal signs SPEECH: abnormal speech Details: slurred (Very minimally) SENSORY EXAM: Yes extremities (Diminished distal RUE and RLE) OTHER: Generally awake, alert, following directions well. No trouble tracking. R facial droop Psych: COMMON NORMALS: mental status grossly normal Skin: COMMON NORMALS: no wounds RASHES: no rashes Data : 02/17/22 13:21 02/17/22 13:21 A&P Assessment and plan (1) Cerebrovascular accident: Not a clear focal distribution, with right-sided facial droop, left side distal upper and lower extremity numbness. History of prior TIA. Hypertensive. Intermittently smokes tobacco. Reports he is taking antiplatelet and statin. Right-sided facial droop, not suggestive at this time of Arenas's palsy, he is mildly thrombocytopenic, but no other symptoms to suggest Lyme's disease, despite having found number of ticks on himself recently. Monitor for any change in symptoms. Continue aspirin, Plavix, increase statin dose to 80 mg. Discussed with him extensively regarding need for smoking cessation, he is not ready to quit at this time. Discussed with him long-term blood pressure will need optimization given episodic hypotension occurring at home. Discussed more frequent monitoring, di scussed as needed medication for episodes of high blood pressure, continuation of oral medicines for baseline control, to avoid hypotension. Assess MRI brain Will additionally assess with TTE, monitor on telemetry. A1c ST, PT, OT. Status: Acute (2) Hypertension: Received IV hydralazine and Vasotec. Continue home medications without escalation for now, as given he did have a headache with the focal neurologic symptoms with possible hypertensive urgency, however, discussed avoiding decreasing blood pressure further/too rapidly currently given suspicion of possible CVA, continue hydralazine 4 times daily. Continue lisinopril. Hold metoprolol due to bradycardia. Monitor blood pressures. Will need additional adjustment of blood pressure medications long-term. Does not currently have a PCP, but discussed with him will need to follow-up with 1, he is trying to establish with Dr. Ni. Status: Acute (3) Tobacco abuse: Discussed with him extensively regarding smoking cessation, he is not ready to quit, smokes intermittently. Nicotine replacement as needed. Status: Acute (4) Sinus bradycardia: It appears he had continued metoprolol at half dose. Heart rates in the 40s. Hold metoprolol. Status: Acute Plan Chronic thrombocytopenia Attestations Medical Necessity Statement*: Admission of over 2 midnights is anticipated versus management of CVA in a gentleman with prior TIA, uncontrolled hyper tension. Coding Level of Care Code Acute Tape Recording Machine Operator for Paresh Nagel Diagnoses Cerebrovascular accident I63.9 Hypertension I10 Tobacco abuse Z72.0 Sinus bradycardia R00.1
[2022-02-17] MEDS: enoxaparin 40 mg/0.4 mL Syringe SUBCUT (19:00)
[2022-02-17] MEDS: amlodipine 5 mg Tablet PO (19:01)
[2022-02-17 20:31] LABS: Troponin 5 6HR 10.85 ng/L (0-15)
[2022-02-17 20:40] LABS: Troponin 5 6HR Delta -1.15 ng/L (0-12)
--- NOTE | 2022-02-17 20:43 | ECG_ITS ---
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 Measurements Intervals [place] Rate: 48 P: 71 WI: 186 QRS: 77 QRSD: 138 T: -72 QT: 461 QTc: 412 Interpretive Statements SINUS BRADYCARDIA INTRAVENTRICULAR CONDUCTION DELAY [130+ ms QRS DURATION] ST and T wave changes inferiorly and laterally, consider ischemia Compared to ECG 02/17/2022 13:42:36 Intraventricular conduction delay now present Myocardial infarct finding no longer present Electronically Signed On 02-18-2022 15:22:44 CDT by Rafat Olivarez M.D. [id number]
[2022-02-17] MEDS: hyDRALAzine 25 mg Tablet PO (20:49)
[2022-02-17 21:24] LABS: Estmated Average Glucose 114; Hemoglobin A1C 5.6 % (4.0-6.0)
[2022-02-17 21:25] LABS: Troponin 5 2HR 11.75 ng/L (0-15)
[2022-02-17 21:33] LABS: Glucose Point of Care 89 mg/dL (70-110)
[2022-02-17 21:57] LABS: Troponin 5 2HR Delta -0.25 ABS# (0-10)
[2022-02-18] VITALS (7 sets, daily range): BP systolic 122–166; BP diastolic 68–89; PULSE 41–48; RESP 16–20; TEMP 36.4–36.7; O2SAT 93–97
--- NOTE | 2022-02-18 01:24 | USCV_ITS ---
Reyes Ji Age: 66 Gender: M : 1955 Exam Date: 02/18/2022 01:39 Ordering Phys: Daquan Wilson MD Technologist: EILEEN [place]am [place] [facility] [place]: CVA BP: / HR: 40 Rhythm: Sinus Technical Quality: Adequate MEASUREMENTS (Male / Female) Normal Values 2D ECHO LV Diastolic Diameter PLAX 4.0 cm 4.2 - 5.9 / 3.9 - 5.3 cm LV Systolic Diameter PLAX 2.8 cm IVS Diastolic Thickness 1.3 cm 0.6 - 1.0 / 0.6 - 0.9 cm IVS Systolic Thickness 1.6 cm LVPW Diastolic Thickness 1.1 cm 0.6 - 1.0 / 0.6 - 0.9 cm LVPW Systolic Thickness 1.0 cm LVOT Diameter 2.1 cm LV Ejection Fraction 2D Teich 59.5 % LV Ejection Fraction MOD 2C 30.8 % LV Ejection Fraction 2C AL 32.8 % LA Diameter 4.1 cm LA Width 3.5 cm LA Height 5.7 cm RA Width 3.8 cm RA Height 4.8 cm Aorta at Sinotubular Diameter 2.4 cm IVC Diameter 1.1 cm M-MODE Aortic Annulus Diameter 1.9 cm LA Ao Ratio MM 2.2 MV E Point Septal Separation 0.9 cm DOPPLER AV Peak Velocity 139.3 cm/s LVOT Peak Velocity 65.0 cm/s AV Area Cont Eq vti 2.4 cm squared AV Area Cont Eq pk 1.6 cm squared MV E' Velocity 9.0 cm/s TR Peak Velocity 161.2 cm/s TR Peak Gradient 10.4 mmHg TR Mean Velocity 133.0 cm/s TR Mean Gradient 8.8 mmHg TR Velocity Time Integral 50.2 cm Right Atrial Pressure 10.0 mmHg Pulmonary Artery Systolic Pressu 20.4 mmHg PV Peak Velocity 80.0 cm/s RV Acceleration Time 0.2 s RV Ejection Time 0.5 s RV AcT/ET 0.4 FINDINGS Left Ventricle Normal left ventricular size, systolic function and wall thickness, with no regional wall motion abnormalities. Left ventricular ejection fraction is estimated at 50-55 %. Normal diastolic function. Right Ventricle Normal right ventricular size and systolic function. Normal right ventricular systolic pressure. Right Atrium The right atrium is normal in size. Left Atrium The left atrium is normal in size. Mitral Valve Structurally normal mitral valve. Aortic Valve Structurally normal aortic valve without significant sclerosis or stenosis. There is no aortic regurgitation. Tricuspid Valve Structurally normal tricuspid valve without significant stenosis or regurgitation. Pulmonary artery systolic pressure is normal. Pulmonic Valve Pulmonic valve not well visualized. Pericardium Normal pericardium without effusion. Aorta Normal ascending aorta dimension. IVC The inferior vena cava pulmonary and hepatic veins appear normal. CONCLUSIONS Normal left ventricular size, systolic function and wall thickness, with no regional wall motion abnormalities. Left ventricular ejection fraction is estimated at 50-55 %. Normal diastolic function. Dr. Rafat Olivarez MD (Electronically Signed) Final Date: 18 February 2022 13:37 S
[2022-02-18 05:36] LABS: Basophils % 0.4 %; Eosinophils # 0.2 10^3/uL (0.0-0.8); Eosinophils % 2.2 %; Hematocrit 48.4 % (42.0-52.0); Hemoglobin 15.8 g/dL (11.7-16.6); Lymphocytes # 1.9 10^3/uL (0.8-4.8); Lymphocytes % 27.7 %; Mean Corpuscular HGB Conc 32.6 g/dL (30.0-36.0); Mean Corpuscular Hemoglobin 30.2 pg (28.0-34.0); Mean Corpuscular Volume 92.4 fl (80-94); Mean Platelet Volume 12.6 fL (7.4-10.4); Monocytes # 0.4 10^3/uL (0.2-0.9); Monocytes % 6.3 %; Neutrophils # 4.31 10^3/uL (1.8-7.7); Neutrophils % 63.1 %; Nucleated Red Blood Cells % 0 %; Platelet Count 105 10^3/cmm (130-400); Red Blood Count 5.24 10^6/uL (4.1-5.3); White Blood Count 6.8 10^3/uL (4.0-10.0)
[2022-02-18] MEDS: aspirin 81 mg EC Tablet PO (05:54)
[2022-02-18] MEDS: lisinopril 20 mg Tablet 40 MG PO (05:54)
[2022-02-18] MEDS: clopidogrel 75 mg Tablet PO (05:54)
[2022-02-18 06:08] LABS: Anion Gap 13.5 (5-19); Blood Urea Nitrogen 12 mg/dL (8-23); Calcium 8.6 mg/dL (8.5-10.5); Carbon Dioxide 24 mmol/L (22-29); Chloride 106 mmol/L (98-107); Glomerular Filtration Rate 74.3 mL/min (90-130); Glucose 90 mg/dL (65-115); Osmolality Calculated 289 mOsm/kg (285-295); Potassium 3.5 mmol/L (3.5-5.1); Sodium 140 mmol/L (136-145)
[2022-02-18] MEDS: hyDRALAzine 25 mg Tablet PO ×2 (08:22→13:28)
[2022-02-18] MEDS: amlodipine 5 mg Tablet PO (08:23)
--- NOTE | 2022-02-18 09:30 | MR_ITS ---
WS: [id number] MRI HEAD WITHOUT CONTRAST TECHNIQUE: Sagittal T1, T2 axial, T2 axial FLAIR, axial and coronal T1 images, axial susceptibility w eighted imaging, axial diffusion weighted images, and coronal T2 images were obtained. CLINICAL INFORMATION: CVA COMPARISON: CTA 02/17/22 FINDINGS: No evidence of restricted diffusion to suggest acute ischemia. Ventricular system and basal cisterns are patent. Mild small vessel changes. Mild parenchymal volume loss. Chronic lacunar infarct LEFT cer ebellum. Normal posterior fossa. Normal vascular flow voids at the skull base. No extra-axial fluid c ollections. No evidence of mass or mass effect. Mild mucosal thickening in the paranasal sinuses more prominent in the sphenoid sinus. Mastoid air cells are well aerated. Punctate focus of hemosiderin in the RIGHT frontal lobe measuring 4.5 mm likely representing a small cavernoma or prior chronic focus of punctate hemorrhage. Normal optic chiasm and pituitary infundibulum. Mild symmetric atrophy of the temporal lobes and bonnie ocampal formations. MR/MR head wo con* [id number] IMPRESSION: 1. No evidence of restricted diffusion to suggest acute ischemia. 2. Mild small vessel changes with mild parenchymal volume loss. 3. 4 mm focus of hemosiderin in the RIGHT frontal lobe likely due to cavernoma or punctate chronic focus of hemorrhage. 4. Mild mucosal thickening in the paranasal sinuses 5. No other acute findings.
--- NOTE | 2022-02-18 10:28 | PC.CHAP ---
Pastoral Care Encounter/Spiritual Assessment Type of Contact [] Declined retail mortgage banker visit [] Patient/Family/Request visit [] Outpatient visit [] Follow-up visit [] Physician referral [] Code/Alert [x] Routine visit [] Staff referral [] Actively dying [] Patient sleeping [] Family support [] [] Out of room [] Palliative care [] [x] Receiving care in room [] Pre-surgical visit [] Trauma [] Long length of stay [] ICU visit [] Other: Relational/Emotional Strength [x] Patient feels connected with others/family/visitors/staff [] Distress [] Loneliness/isolation [] Abandonment Spirituality of Patient [x] Person of Jessie [] Attends [employer] of their Jessie [x] Believes in Prayer [] Reads Bible or Pentecostal materials [] There are Spiritual issues to be addressed [place] Interventions [x] Prayer [x] Active listening [x] Non-anxious presence [x] Spiritual/emotional support [] Crisis/trauma care [x] Spiritual counseling [] Bereavement support [] Provided bereavement packet [] Provided Bible/devotional materials [] Provided toy/stuffed animal, coloring book to patient or family member [] Provided Communion [] Anointing/[place] [] Salvation [x] Completed spiritual assessment [] Other: Impact on Illness or Injury [] Angry [] Fearful [x] Anxious [] Often cries [] Exhaustion [] Unable to work [] Unable to attend hindu [] Unable to walk/stand [] Unable to read [] Unable to drive [] Unable to eat/drink [] Unable to sleep [] Unable to be with family [] Patient intubated [] Other: Summary weakness in lower back and leg has a possitve attitude well be going home Time spent with patient 10 mins
--- NOTE | 2022-02-18 11:22 | PC.OT ---
OT EVALUATION ATTEMPTED. PATIENT AT MRI; WILL ATTEMPT AGAIN AT A LATER TIME.
--- NOTE | 2022-02-18 15:22 | P.DS_ITS ---
Discharge Providers Date of Admission: 02/17/22 14:51 Date of Discharge: February 18, 2022 Attending Provider at Admission: Daquan Wilson Attending Provider at Discharge: Daquan Wilson Diagnoses at Discharge Discharge Diagnosis (1) Cerebrovascular accident: Status: Acute (2) Hypertension: Status: Acute (3) Tobacco abuse: Status: Acute (4) Sinus bradycardia: Status: Acute Reason for Visit Reason for Visit: WEAKNESS LOWER EXT, LEFT SIDE DROOP Brief History: Pleasant 66-year-old gentleman with past history of mini strokes, cardiovascular disease with coronary disease with stenting in the past, as well as carotid artery less than 50% stenosis during work-up of TIA in 2019, with hypertension, blood pressures intermittently running into 190s and even 200s systolic, 100s diastolic, other times running in 130s systolic, with history of bradycardia due to which she was recommended discontinuing metoprolol during last admission, although he says remember that metoprolol was cut down to half dose but con tinued, so he continued it that way.? 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 Presented to ER after today noticing right-sided facial droop, his brother also notices some mild dysarthria, and numbness and tingling in left arm below elbow and left leg below the knee.? Mild frontal in ER noted significantly hypertensive, 215/106, received hydralazine, enalaprilat, subsequently with blood pressure down to 168/93. At the same time heart rate noted to be decreasing into the mid 40s. He reports he has been mowing quite a bit outside, and developed significant sinus drainage, and attributed the headache possibly to sinus issues.? He had found about 7 ticks on him, some of them not attached, states none of them were engorged.? Denies any rash.? No fever, chills, sweats, joint aches. He was assessed for possible CVA in ER.? CT of the head without acute intracranial abnormality.? He was not found candidate for tPA. CTA head and neck was performed, with no large vessel occlusion.? Focal areas of moderate stenosis in the cavernous and periophthalmic segments of the right internal carotid artery.? Focal areas of mild to moderate stenosis in left vertebral artery at the level of the skull base.? No significant cervical vascular stenosis. He is in the process of establishing with Dr. Ni for primary provider. Hospital Course Hospital Course During hospital stay his symptoms mostly resolved. He had no further numbness paresthesia in the left lower arm or leg. Slurred speech if present resolved. Facial droop resolved. His blood pressures improved and had been better. Headache resolved. Today he did well with physical therapy. Additional assessment with MRI showed no suggestion of CVA, however, with incidentally noted 4 mm focus of hemosiderin in the right frontal lobe likely due to cavernoma or punctate chronic focus of hemorrhage. Other incidental findings in the report. A1c was normal. Echocardiogram showed normal ejection fraction no regional wall motion abnormalities. Normal diastolic function. Bradycardia in the 40s, on 1 occasion as low as 30s, 40s-50s this morning. He is asked to discontinue metoprolol. Given resolution of his symptoms including headache with improvement in blood pressures, symptoms during this episode thought to be likely secondary to hypertensive urgency. He is encouraged to monitor his blood pressures and optimize control. He is asked to stop metoprolol currently, with hydralazine dose increased to 25 mg 4 times daily. He continues on lisinopril. He is asked to take additional hydralazine dose in case blood pressures are rising above 180/90. In case unable to control blood pressures he is asked to proceed to ER. Due to possibility of small current bleed and right frontal lobe within noted incidentally per millimeter hemosiderin deposition focus, at this time he is asked not to continue dual antiplatelet therapy, discontinue Plavix, continue aspirin alone. (Last coronary stent was in 2004 as per family). He is asked to continue statin. He is encouraged to stop smoking entirely as per several discussions. Had in the hospital. Please follow-up blood pressures and heart rates in office. Continue to assist to optimize cardiovascular risk. Please reassess heart rates in case of persistent bradycardia consider referral for heart monitor. Incidentally noted mild thrombocytopenia which is chronic, please follow-up in office. She has been afebrile, without transaminitis, with normal sodium, and his symptoms otherwise do not resemble Arenas's palsy, however, he did report recently finding up to 10 ticks on him and a number of bites, due to which tick panel was sent out. Physical Exam Narrative: and sister at bedside. Const: COMMON NORMALS: alert GENERAL APPEARANCE: cooperative ORIENTATION/CONSCIOUSNESS: Yes awake HENMT: COMMON NORMALS: normocephalic, EAC's normal, Normal external nose present and moist oral mucous membranes HEAD & SCALP: normocephalic NOSE: Normal external nose present EXTERNAL AUDITORY CANAL: EAC's normal Neck/C-Spine: COMMON NORMALS: no meningeal signs Chest: CHEST: Yes Symmetrical chest wall rise Resp: COMMON NORMALS: clear to auscultation bilaterally AUSCULTATION: clear to auscultation bilaterally Cardio: COMMON NORMALS: regular rate, regular rhythm and No murmurs present (Cardio) RATE: regular rate RHYTHM: regular rhythm GI: COMMON NORMALS: Normal to inspection, nondistended, normoactive bowel sounds present, Soft to palpation and non-tender PALPATION: Yes Soft to palpation Extremity: COMMON NORMALS: no pedal edema Neuro: COMMON NORMALS: moves all extremities SENSORIUM/ORIENTATION: Yes al ert MENINGEAL SIGNS: Yes no meningeal signs SPEECH: speech normal SENSORY EXAM: No sensory level loss detected Psych: COMMON NORMALS: mental status grossly normal Skin: COMMON NORMALS: no wounds RASHES: no rashes Discharge Data Studies Completed and Pending Completed Studies During Hospitalization Category Date Time Status CT head wo con* [id number] Stat Cat Scan 02/17/22 13:05 Completed CTA head neck [CT angio headneck* [id number]] Stat Cat Scan 02/17/22 13:48 Completed XR chest 1V portable [id number] Stat Exams 02/17/22 13:05 Completed MR head wo con* [id number] Routine MRI 02/18/22 09:30 Completed CV. echo complete* [id number] Routine Ultrasound 02/18/22 01:24 Completed Pending at discharge Category Date Time Status Tick Panel Routine Lab 02/18/22 14:11 Ordered Radiology Impressions Chest X-Ray 02/17/22 13:05 IMPRESSION: Unremarkable chest radiograph. Head CT 02/17/22 13:05 IMPRESSION: No acute intracranial abnormality. Head/Neck CTA 02/17/22 13:48 IMPRESSION: 1. No acute intracranial abnormality. 2. No large vessel occlusion. 3. Focal areas of moderate stenosis in the cavernous and paraophthalmic segments of the right internal carotid artery. 4. Focal areas of [id number] stenosis in the left vertebral artery at the level of the skull base. IMPRESSION: No stenosis or occlusion. REFERENCES: NASCET CRITERIA. The degree of internal carotid artery stenosis is based on NASCET criteria. Normal is no stenosis. Mild is less than 50% stenosis. Moderate is 50-69% stenosis. Severe is 70% to 99% stenosis. Total occlusion is no detectable patent lumen. Head MRI 02/18/22 09:30 IMPRESSION: 1. No evidence of restricted diffusion to suggest acute ischemia. 2. Mild small vessel changes with mild parenchymal volume loss. 3. 4 mm focus of hemosiderin in the RIGHT frontal lobe likely due to cavernoma or punctate chronic focus of hemorrhage. 4. Mild mucosal thickening in the paranasal sinuses 5. No other acute findings. Laboratory Results WBC 6.8 10^3/uL (4.0-10.0) 02/18/22 05:00 RBC 5.24 10^6/uL (4.1-5.3) 02/18/22 05:00 Hgb 15.8 g/dL (11.7-16.6) 02/18/22 05:00 Hct 48.4 % (42.0-52.0) 02/18/22 05:00 MCV 92.4 fl (80-94) 02/18/22 05:00 MCH 30.2 pg (28.0-34.0) 02/18/22 05:00 MCHC 32.6 g/dL (30.0-36.0) 02/18/22 05:00 RDW 13.0 % (12.1-15.1) 02/18/22 05:00 Plt Count 105 10^3/cmm (130-400) L 02/18/22 05:00 MPV 12.6 fL (7.4-10.4) H 02/18/22 05:00 Neut % (Auto) 63.1 % 02/18/22 05:00 Lymph % (Auto) 27.7 % 02/18/22 05:00 Dupage % (Auto) 6.3 % 02/18/22 05:00 Eos % (Auto) 2.2 % 02/18/22 05:00 Baso % (Auto) 0.4 % 02/18/22 05:00 Neut # (Auto) 4.31 10^3/uL (1.8-7.7) 02/18/22 05:00 Lymph # (Auto) 1.9 10^3/uL (0.8-4.8) 02/18/22 05:00 Dupage # (Auto) 0.4 10^3/uL (0.2-0.9) 02/18/22 05:00 Eos # (Auto) 0.2 10^3/uL (0.0-0.8) 02/18/22 05:00 Baso # (Auto) 0.0 10^3/uL (0.0-0.1) 02/18/22 05:00 Nucleated RBC % (auto) 0 % 02/18/22 05:00 Nucleated RBCs # 0.0 /100WBC 02/18/22 05:00 PT 13.50 SECONDS (12.1-14.9) 02/17/22 13:21 INR 1.00 (0.8-1.2) 02/17/22 13:21 APTT 30.2 SECONDS (23.9-36.7) 02/17/22 13:21 Sodium 140 mmol/L (136-145) 02/18/22 05:00 Potassium 3.5 mmol/L (3.5-5.1) 02/18/22 05:00 Chloride 106 mmol/L (98-107) 02/18/22 05:00 Carbon Dioxide 24 mmol/L (22-29) 02/18/22 05:00 Anion Gap 13.5 (5-19) 02/18/22 05:00 BUN 12 mg/dL (8-23) 02/18/22 05:00 Creatinine 1.0 mg/dL (0.7-1.2) 02/18/22 05:00 GFR Calculation 74.3 mL/min (90-130) L 02/18/22 05:00 Glucose 90 mg/dL (65-115) 02/18/22 05:00 POC Glucose 89 mg/dL (70-110) 02/17/22 21:28 Estimat Average Glucose 114 02/17/22 13:21 Hemoglobin A1c 5.6 % (4.0-6.0) 02/17/22 13:21 Calculated Osmolality 289 mOsm/kg (285-295) 02/18/22 05:00 Calcium 8.6 mg/dL (8.5-10.5) 02/18/22 05:00 Total Bilirubin 0.4 mg/dL (0.15-1.2) 02/17/22 13:21 AST 14 U/L (0-40) 02/17/22 13:21 ALT 11 U/L (0-41) 02/17/22 13:21 Alkaline Phosphatase 60 IU/L (40-130) 02/17/22 13:21 Troponin T Baseline 12 ng/L (0-15) 02/17/22 13:21 Troponin T 120 Minute 11.75 ng/L (0-15) 02/17/22 14:30 Delta Troponin T -0.25 ABS# (0-10) L 02/17/22 14:30 Troponin T Hi Sens 6Hr 10.85 ng/L (0-15) 02/17/22 19:56 Troponin T Hi Sens 6Hr Delta -1.15 ng/L (0-12) L 02/17/22 19:56 Total Protein 7.1 g/dL (6.6-8.7) 02/17/22 13:21 Albumin 4.6 g/dL (3.5-5.2) 02/17/22 13:21 Globulin 2.5 g/dL (1.3-4.6) 02/17/22 13:21 Urine Color Yellow (Yellow) 02/17/22 13:46 Urine Appearance Clear (CLEAR) 02/17/22 13:46 Urine pH 5 (5-7) 02/17/22 13:46 Ur Specific Bliss 1.020 (1.005-1.030) 02/17/22 13:46 Urine Protein Neg (Negative) 02/17/22 13:46 Urine Glucose (UA) Norm (Normal) 02/17/22 13:46 Urine Ketones Negative (Negative) 02/17/22 13:46 Urine Blood Neg (Negative) 02/17/22 13:46 Urine Nitrate Negative (Negative) 02/17/22 13:46 Urine Bilirubin Neg (Negative) 02/17/22 13:46 Urine Urobilinogen Norm mg/dL (Negative) 02/17/22 13:46 Ur Leukocyte Esterase Negative (Negative) 02/17/22 13:46 Urine Opiates Screen Negative ng/mL (Negative) 02/17/22 13:46 Ur Barbiturates Screen Negative ng/mL (Negative) 02/17/22 13:46 Ur Phencyclidine Scrn Negative ng/mL (Negative) 02/17/22 13:46 Ur Amphetamines Screen Negative ng/mL (Negative) 02/17/22 13:46 U Benzodiazepines Scrn Negative ng/mL (Negative) 02/17/22 13:46 Urine Cocaine Screen Negative ng/mL (Negative) 02/17/22 13:46 U Marijuana (THC) Screen Negative ng/mL (Negative) 02/17/22 13:46 Vitals Last Vital Signs Temp 97.8 F 02/18/22 11:35 Pulse 46 L 02/18/22 11:35 Resp 17 02/18/22 11:35 BP 154/86 02/18/22 11:35 Pulse Ox 96 02/18/22 11:35 Discharge Plan Discharge Patient Disposition: Home Condition: Stable Prescriptions: Continued atorvastatin 40 mg Tablet 40 mg PO QPM 0RF lisinopril 40 mg Tablet 40 mg PO QAM 0RF amlodipine 5 mg Tablet 5 mg PO BID 0RF aspirin 81 mg tablet,delayed release (DR/EC) 81 mg PO QAM 0RF Changed hydralazine 25 mg tablet 25 mg PO QID Qty: 120 0RF Discontinued metoprolol succinate 25 mg tablet extended release 24 hr 25 mg PO QAM 0RF clopidogrel 75 mg tablet 75 mg PO QAM 0RF Discharge Orders: Discharge Order (Routine); Ordered 02/18/22 Ordered By: Daquan Wilson Referrals: [facility] [Provider Group] - 1 week (TIA, 4mm R frontal focus of hemosiderin on DAPT) Jamie Ni DO [Referring] - 4-7 days (HTN urgency, TIA) Elizabeth Capone MD [Physician] - (HTN urgency, bradycardia as low as 30s. Stopped BB) Discharge Diet: Cardiac Discharge Activity: Increase activity as tolerated and As per PT/OT instructions Patient Instructions: Transient Ischemic Attack (GEN), Bradycardia (GEN), Hypertension (GEN) Activity Restrictions/Additional Instructions: Please monitor blood pressure at least 3 times daily, write down values to bring to her appointment with in case blood pressure is rising above 180 top number or 90 bottom number, take extra dose of 25 mg hydralazine. Please discontinue metoprolol due to slow heart rate. Monitor heart rates 3 times daily, write down values. Discussed with her primary doctor. 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 In case heart rates remain low despite discontinuing metoprolol, discussed consideration of further heart monitoring. Discuss with your primary doctor regarding recurrence of focal neurological symptoms, suspicion for hypertensive urgency as cause of the current episode. However, possible TIA. Discuss also with your primary doctor and neurologist regarding incidentally seen 4 mm focus of hemosiderin in the right frontal lobe thought to be likely due to cavernoma or punctate chronic focus of hemorrhage. Due to this for now please discontinue Plavix, continue low-dose aspirin alone. Please continue to optimize cardiovascular risk factors, including better control of hypertension. Target blood pressure 120/80. And continue attempts to quit smoking entirely. Please have your primary doctor follow-up also regarding tick panel. It is lower suspicion that your symptoms were related to Raenas's palsy given you do not have other findings that may suggest this, however, due to multiple tick bites tick panel has been requested. Please seek medical attention especially if you develop fever, rash, easy bruising or other concerning symptoms. In case you develop weakness, numbness, trouble speaking, seeing, or other concerning symptoms, call 911 immediately. Discharge Attestations Time Spent in Discharge Care*: greater than 30 min Quality Metrics Clinical Quality Measures [ Cerebrovascular Accident { Contraindication to Antithrombotic: None; antithrombotic prescribed; Contraindication to Anticoagulation: Overlap treatment not indicated; Contraindication to Statin: None; Statin prescribed;}] Coding Level of Care Code Acute [facility] [place] note Diagnoses Cerebrovascular accident I63.9 Hypertension I10 Tobacco abuse Z72.0 Sinus bradycardia R00.1
--- NOTE | 2022-02-18 15:35 | PC.OT ---
OT EVALUATION ORDERS RECEIVED. PATIENT IN PROCESS OF DISCHARGE; THUS NO OT EVAL COMPLETED.
[2022-02-19 13:17] LABS: Lyme AB Screen <0.90 index
[2022-02-23 18:02] LABS: RMSF IGG NOT DETECTED; RMSF IGM NOT DETECTED
[2022-02-23 21:43] LABS: E. Chaffeensis AB IGG <1:64; E. Chaffeensis AB IGM <1:20
== END 2022-02-18 16:08 | disposition home or self-care (01) ==
LOC: ER 15:29 → MEDSURG 16:43
PROVIDERS: Admitting Provider Internal Medicine; Emergency Provider Family Medicine; Visit Provider Internal Medicine
DX: I63.9 Cerebral infarction, unspecified (principal); I10 Essential (primary) hypertension; R00.1 Bradycardia, unspecified; Z95.5 Presence of coronary angioplasty implant and graft; F17.200 Nicotine dependence, unspecified, uncomplicated; R06.00 Dyspnea, unspecified; R42 Dizziness and giddiness; I25.10 Atherosclerotic heart disease of native coronary artery without angina pectoris; Z86.73 Personal history of transient ischemic attack (TIA), and cerebral infarction without residual deficits; Z79.82 Long term (current) use of aspirin; Z82.49 Family history of ischemic heart disease and other diseases of the circulatory system; D69.6 Thrombocytopenia, unspecified; Z79.899 Other long term (current) drug therapy
CPT/HCPCS: 36415; 36416; 70450; 70496; 70498; 70551; 71045; 80048; 80053; 80306; 81003; 82962; 83036; 84484; 85025; 85610; 85730; 86618; 86666; 86757; 92523; 93005; 93306; 96372; 96374; 96375; 97161; 99285; G0378; J0360; J1650; J3490; Q9967

== ENCOUNTER → 2022-02-24 11:12 | Outpatient (BNVA) | payer MEDICARE, SELFPAY | PROVIDERS: Visit Provider Internal Medicine Cardiovascular Disease | DX: I25.10 Atherosclerotic heart disease of native coronary artery without angina pectoris (principal); I10 Essential (primary) hypertension; F17.200 Nicotine dependence, unspecified, uncomplicated; E78.5 Hyperlipidemia, unspecified; I73.9 Peripheral vascular disease, unspecified; D69.6 Thrombocytopenia, unspecified | CPT/HCPCS: 99214 ==

== ENCOUNTER 2022-04-21 07:26 | Outpatient (CLI) | payer MEDICARE, SELFPAY ==
--- NOTE | 2022-04-21 | ECG_ITS ---
[facility] Test Date: 2022-04-21 Pat Name: Reyes Ji Department: Room: Gender: Male [employer]: : 1955 Requested By: Elizabeth Capone Order Number: [id number] Brian MD: Elizabeth Capone M.D. Interpretive Statements NAME OF STUDY: LEXISCAN SESTAMIBI STRESS TEST INDICATION: Chest Pain PROCEDURE: At the baseline, the blood pressure was 104/76 mmHg with a heart rate of 51 bpm. The electrocardiogram showed sinus bradycardia, right axis deviation. Intraventricular conduction delay (left bundle branch like morphology). The Lexiscan was infused over a period of 20 seconds. A total of 0.4 milligrams of Lexiscan was infused. The stress phase was continued for a total of 5 minutes. Heart rate at the end of the stress phase was 59 beats per minute with a blood pressure of 152/72 mmHg. The EKG at the peak infusion revealed sinus rhythm with frequent isolated PVCs with no significant ST-T wave changes. Sestamibi was injected 20 seconds after the Lexiscan infusion. Blood pressure at the end of the recovery phase was 153/73 mmHg with a heart rate of 56 beats per minute. CONCLUSION: 1. Nondiagnostic EKG with LexiScan infusion due to baseline IVCD (left bundle branch block like morphology). 2. No LexiScan induced chest pain or cardiac arrhythmia. 3. Normal blood pressure and heart rate response. 4. Sestamibi/sestamibi perfusion scan pending; see separate report. Electronically Signed On 04-29-2022 12:20:27 CDT by Elizabeth Capone M.D. [id number]
[2022-04-21 07:36] VITALS: BMI 23.0
--- NOTE | 2022-04-21 07:38 | NMCV_ITS ---
NM binh perf SPECT r/s* [id number] Reyes Ji Age: 66 Gender: M : 1955 Exam Date: 04/21/2022 07:52 Ordering Phys: Elizabeth Capone MD ([email or web address]) Technologist: MAE Sifuentes Exam Location: [facility] Indications: CHEST PAIN STRESS TEST Please see separate stress test report in [facility] for full findings IMAGE PROTOCOL Rest/Stress 1 Lexiscan Day Radiopharmaceutical Dose (mCi) Administration Site Administered by Rest: Tc-99m 10.8 IV MAE Hardin Sestamibi Stress:Tc-99m 32.9 IV MAE Hardin Sestamibi Rest: 21-Apr-2022 60 Discovery 630 Stress: 21-Apr-2022 30 Discovery 630 0.4mg Lexiscan. Images obtained in supine and prone position. SPECT RESULTS Technical Quality: Excellent Raw Data Analysis: Normal Image Corrections: No attenuation or motion correction applied Summed Stress Score: 17 Summed Rest Score: 14 Summed Difference Score: 4 PERFUSION FINDINGS Medium sized perfusion abnormality of basal to apical inferior, basal to mid inferolateral, mid inferoseptal wall on rest images with mild reversibility in mid inferolateral and apical lateral duvall. FUNCTIONAL RESULTS (calculated via Gated SPECT) Stress Image LV EF (%): 52 Stress EDV (mL):167 TID: 1.05 Stress ESV (mL):80 FUNCTIONAL FINDINGS: The left ventricle is normal in size. Transient Ischemia Dilatation of 1.1. The left ventricular ejection fraction is mildly reduced with a value of 52%. There seems to be hypokinesis of basal to mid inferior wall. Increased end-diastolic end-systolic volumes. IMPRESSIONS 1. Medium sized perfusion abnormality of basal to apical inferior, basal to mid inferolateral, mid inferoseptal duvall with mild reversibility in mid inferolateral and apical lateral duvall. 2. This is suggestive of old myocardial infarction in right coronary artery/circumflex artery territory with mild kalen-infarct ischemia. 3. The left ventricular ejection fraction is mildly reduced with a value of 52%. 4. There seems to be hypokinesis of basal to mid inferior duvall. 5. EKG portion of the study will be reported separately. Elizabeth Capone MD (Electronically Signed) Final Date: 29 April 2022 12:17 S
[2022-04-21 09:36] VITALS: BP 153/73; PULSE 57
[2022-04-21] MEDS: regadenoson 0.4 Mg/5 ml Syringe IVP (09:36)
== END 2022-04-21 07:27 | disposition home or self-care (01) ==
LOC: CDL 07:29
PROVIDERS: PCP Electrodiagnostic Medicine; Visit Provider Internal Medicine Cardiovascular Disease
DX: R07.9 Chest pain, unspecified (principal); R06.02 Shortness of breath
CPT/HCPCS: 78452; 93017; A9500; J2785

== ENCOUNTER → 2022-05-13 11:08 | Outpatient (BNVA) | payer MEDICARE, SELFPAY | PROVIDERS: PCP Electrodiagnostic Medicine; Visit Provider Internal Medicine Cardiovascular Disease | DX: I25.10 Atherosclerotic heart disease of native coronary artery without angina pectoris (principal); I10 Essential (primary) hypertension; E78.5 Hyperlipidemia, unspecified; I73.9 Peripheral vascular disease, unspecified; D69.6 Thrombocytopenia, unspecified; F17.200 Nicotine dependence, unspecified, uncomplicated; Z86.73 Personal history of transient ischemic attack (TIA), and cerebral infarction without residual deficits | CPT/HCPCS: 99214 ==

== ENCOUNTER 2025-01-15 15:33 | Outpatient (CLI) | payer MEDICARE, SELFPAY ==
--- NOTE | 2025-01-15 15:52 | CT_ITS ---
WS: [id number] CT RIGHT HIP, NONCONTRAST HISTORY: RIGHT HIP PAIN Technique: All CT scans at [facility] use at least one of these dose optimization techniques: automated exposure control; mA and/or kV adjustment per patient size (includes targeted exams where dose is matched to clinical indication); or iterative reconstruction. DLP: 280.38 mGy.cm COMPARISON: Radiograph 12/26/2024 RIGHT hip is normally positioned within the acetabulum. Very minimal osteophytic ridging around the acetabulum and joint space narrowing. There is a tiny osteophyte from the lateral femoral head-neck junction. No calcified body in the joint space. No bone destruction. Minimal narrowing of the RIGHT SI joint with degenerative air. Normal appearance of the soft tissues and muscles. Extensive calcification noted within the iliac and femoral arteries. Prostate gland is minimally enlarged. Sigmoid diverticulosis without acute diverticulitis. There is also a small RIGHT inguinal hernia containing fat only. CT/CT hip RT wo con* [id number] IMPRESSION: 1. No acute fracture or destructive bone lesion. 2. Extensive atherosclerosis in the RIGHT iliac and femoral arteries. 3. Minimal osteophytosis RIGHT hip joint.
== END 2025-01-15 15:34 | disposition home or self-care (01) ==
PROVIDERS: PCP Electrodiagnostic Medicine; Visit Provider Electrodiagnostic Medicine
DX: M25.551 Pain in right hip (principal); I70.8 Atherosclerosis of other arteries; K57.30 Diverticulosis of large intestine without perforation or abscess without bleeding; K40.90 Unilateral inguinal hernia, without obstruction or gangrene, not specified as recurrent
CPT/HCPCS: 73700

== ENCOUNTER → 2025-03-12 11:16 | Outpatient (BNVA) | payer MEDICARE, SELFPAY | PROVIDERS: PCP Electrodiagnostic Medicine; Visit Provider Student in an Organized Health Care Education/Training Program | DX: M25.551 Pain in right hip (principal); M70.61 Trochanteric bursitis, right hip; M54.31 Sciatica, right side | CPT/HCPCS: 73502; 99203 ==